=== PATIENT | female | born 1940 | race Caucasian/White ===

== ENCOUNTER 2018-04-07 13:06 | Emergency (ER) | payer MEDICARE, BC ==
[2016-02-18 08:40] VITALS: BMI 34.3
[~2018-04-07 13:06] MED LIST: BAYER CHEWABLE81 MG PO; COZAAR100 MG PO; HYDROCHLOROTHIA25 MG PO; KLOR-CON 1010 MEQ PO; LEXAPRO10 MG PO; LIPITOR20 MG PO; NEXIUM40 MG PO; NORVASC5 MG PO; PLAVIX75 MG PO; POTASSIUM99 M1; PRENATAL COMPLE1 TAB PO; PROTONIX40 MG PO; TOPROL XL200 MG PO; VITAMIN C1000 MG PO; VITAMIN D2000 UNIT PO; XANAX0.25 MG PO; ZANTAC150 MG PO
[2018-04-07 15:26] LABS: BASOPHILS 0.2 % (0-2); HEMATOCRIT 48.4 % (36.0-48.0); HEMOGLOBIN 16.6 g/dL (12-16); IMMATURE GRANULOCYTES 0.3 % (0-5); LYMPHOCYTES 24.8 % (15-50); MCH 31.7 pg (26.0-34.0); MCHC 34.3 g/dL (31.0-37.0); MCV 92.4 fL (80.0-100.0); MEAN PLATELET VOLUME 11.9 fL (7.4-10.4); NEUTROPHILS 63.7 % (40-80); PLATELET COUNT 283 10x3/uL (130-400); RBC 5.24 10x6/uL (4.00-5.40); RDW 13.8 % (11.5-14.5); WBC 12.2 10x3/uL (4.8-10.8)
[2018-04-07 15:34] LABS: ALBUMIN 3.5 g/dL (3.4-5.0); ALKALINE PHOSPHATASE 61 U/L (46-116); ALT (SGPT) 35 U/L (10-68); BILIRUBIN - TOTAL 0.38 mg/dL (0.2-1.3); CALC OSMOLALITY 282 mosm/kg (275-300); CALCIUM 9.6 mg/dL (8.5-10.1); CARBON DIOXIDE 26.6 mmol/L (21.0-32.0); CHLORIDE - SERUM 102 mmol/L (98-107); CREATININE - SERUM 1.2 mg/dL (0.6-1.3); GLUCOSE 121 mg/dL (74-106); POTASSIUM - SERUM 3.3 mmol/L (3.5-5.1); PROTEIN - SERUM 6.6 g/dL (6.4-8.2); SODIUM 140 mmol/L (136-145); UREA NITROGEN 21 mg/dL (7-18); eGFR NON AFRICAN AMERICAN 46 mL/min (90-120)
[2018-04-07 15:46] LABS: THYROID STIMULATING HORMONE 5.51 uIU/mL (0.36-3.74)
[2018-04-07 15:48] LABS: TROPONIN-I < 0.017 ng/mL (0.000-0.060)
== END 2018-04-07 17:08 | disposition home or self-care (01) ==
LOC: D.ER 13:06
PROVIDERS: Physician Assistant
DX: I48.91 Unspecified atrial fibrillation (principal); Z86.79 Personal history of other diseases of the circulatory system; R53.83 Other fatigue; E87.6 Hypokalemia; I44.7 Left bundle-branch block, unspecified

== ENCOUNTER 2018-04-13 12:47 | Inpatient (IN) | payer MEDICARE, BC ==
[~2018-04-13] VITALS: Ht 157.5 cm; Wt 85.3 kg
--- NOTE | ~2018-04-13 | HP ---
PATIENT: MARLEEN DIAZ MEDICAL RECORD: [id number] ACCOUNT: [id number] LOCATION:[address] : 42 ADMISSION DATE: 04/14/18 HISTORY AND PHYSICAL EXAMINATION DATE OF ADMISSION: 04/13/2018 CHIEF COMPLAINT: Irregular heartbeat, substernal chest pain, shortness of breath. HISTORY OF PRESENT ILLNESS: The patient is a 77-year-old female with a known history of having arteriosclerotic heart disease. She has had multiple stents placed in the past. She had presented to the Emergency Room last Tuesday with atrial fibrillation, apparently started on Xarelto, was referred to Dr. Still's office on Tuesday, was given sotalol 80 mg and states that last night she became acutely short of breath, having some substernal chest pain, had one episode of nausea and vomiting. She had pressure in her chest. The patient presented to the Emergency Room, it was felt she warranted admission with uncontrolled atrial fibrillation. PAST MEDICAL HISTORY: Significant for she has had a history of having depression. She has had anxiety, hyperlipidemia, gastroesophageal reflux. She is , history of SVT in the past, DJD of the lumbar spine, history of plantar fasciitis, erosive gastritis. She had 2 stents placed in January [address] Still. She has had a hysterectomy. FAMILY HISTORY: Significant for father had hypertension, also had cerebrovascular accident. Mother had hypertension as well as heart disease. ALLERGIES: ARTHROTEC, CODEINE, CORTISONE, CORTISPORIN, ERYTHROMYCIN BASE, MINIPRESS, NOVOCAIN. MEDICATIONS: Include alprazolam 0.25 p.o. q.8 hours p.r.n. anxiety, aspirin 81 mg once a day, recently placed on Xarelto 20 mg once a day, atorvastatin 20 mg once a day, Wellbutrin 150 mg daily, Lexapro 20 mg daily, hydrochlorothiazide 25 mg daily, Levsin 0.125 sublingual q.6 hours p.r.n. abdominal cramps, losartan 100 mg once a day, metoprolol 200 mg b.i.d., recently placed on sotalol 80 mg b.i.d., pantoprazole 40 mg once a day, Ventolin HFA 90 mcg a day, vitamin D3 2000 international units once a day. HABITS: The patient denies any ethanol, tobacco use or abuse. SOCIAL HISTORY: The patient has worked as a seamstress, graduate of the 12th grade. She is , currently retired. REVIEW OF SYSTEMS: GENERAL: She denies any headaches, seizure or syncope. She denies change in visual or auditory acuity. PULMONARY: She denies any shortness of breath, cough, congestion, history of TB, asthma or bronchitis. CARDIOVASCULAR: No chest pain, palpitations, PND, or orthopnea. GASTROINTESTINAL: No chronic nausea, vomiting, melena or hematochezia. GENITOURINARY: No urgency, frequency, or dysuria. PHYSICAL EXAMINATION: HISTORY AND PHYSICAL [id number] MARLEEN DIAZ VITAL SIGNS: In the Emergency Room, the patient's blood pressure was 139/85, her pulse was 120 and irregular, temperature was 97, respirations were 20, O2 sat was 96% on room air. HEENT: Head is normocephalic. No lesions. Ears: TMs clear. Eyes: Pupils equal, round, reactive to light. Her extraocular movements are intact. Her nasal cavity, oral cavity, oropharynx clear. NECK: Supple. There is no adenopathy. HEART: Irregular, tachycardic. LUNGS: Clear. ABDOMEN: Soft, bowel sounds are positive. EXTREMITIES: Lower extremities have no edema. LABORATORY DATA: The patient had a chest x-ray. The chest x-ray revealed heart size to be normal. No active infiltrates can be appreciated. EKG revealed uncontrolled atrial fibrillation. After receiving Cardizem, she did have atrial fibrillation with rate controlled at 63. White count was elevated at 15, hemoglobin 15.4, hematocrit 43.8, and platelets were 206. Sodium was 133, potassium 3, chloride is 96, BUN is 20, creatinine is 1. She had a glucose of 145. ProBNP was elevated at 7748. ASSESSMENT: 1. New onset atrial fibrillation, uncontrolled at the present time. 2. History of hypertension. 3. History of arteriosclerotic heart disease with stenting in the past. 4. Hyperlipidemia. 5. Depression and anxiety. 6. Hypokalemia. PLAN: The patient will be given 60 mEq of KCl. She will also be given Lasix 40 mg IV q.24 hours. Stop her metoprolol, stop her sotalol. Place her on Cardizem 240 once a day. Continue Xarelto 20 mg once a day. The patient had an echocardiogram on Tuesday. We will obtain the results. The patient will be continued to be monitored. Cardiology consultation will be obtained for possible cardiac catheterization. We will also check the patient's thyroid level. TRANSINT:[id number] Voice Confirmation ID: [id number] DOCUMENT ID: [id number] VINICIUS WEAVER MD at 1447 CC: [id number] DICTATION DATE: 04/13/181844 MINE ENGINEER: 04/13/18 193 ADM IN [place] [id number] [place] [address]
--- NOTE | ~2018-04-13 | EC ---
PATIENT:MARLEEN DIAZ DATE OF SERVICE: 04/14/18 SEX: F MEDICAL RECORD: [id number] DATE OF : 42 LOCATION:D.M2 D.211 AGE OF PATIENT: 77 ADMISSION DATE: 04/14/18 REFERRING PHYSICIAN: INTERPRETING PHYSICIAN: CRISTOBAL SIEGEL MD ECHOCARDIOGRAM REPORT ECHO CHARGES 4 ECHO COMPLETE Date: 04/14 CLINICAL DIAGNOSIS: A-FIB ECHOCARDIOGRAPHIC MEASUREMENTS (adult normal given) AC root (d.<3.7cm) 2.8 cm LV Septum d (<1.2 cm> 1.1 cm Valve Excursion 2.0 cm LV Septum (systole) 1.4 cm Left Atria (s.<4.0cm> 4.5 cm LVPW d(<1.2cm) 1.2 cm RV (d.<2.3cm) 2.4 cm LVPW (sytole) 1.8 cm LV diastole(<5.6CM) 5.8 cm MV E-F(>70mm/sec) cm LV systole 4.0 cm LVOT Diameter 2.0 cm MV exc.(>10mm) cm Est.ejection fraction (50-75%) % DOPPLER: LVIT cm/sec A cm/sec E 150 cm/sec LA cm/sec RVSP 44.0 mmHg LVOT 81.0 cm/sec AOP1/2T m/s Asc. Ao 148 cm/sec RVOT 90.0 cm/sec RA cm/sec PA 101 cm/sec AV Gradient Peak 8.8 mmHg AV Mean 4.2 mmHg AV Area 1.7 cm MV Gradient Peak 9.0 mmHg MV Mean 2.8 mmHg MV Area cm COMMENTS: Outboard System Operator: Farhana STEVENSOE Agitator Operator: Nick Siegel TAPE# PACS Pericardial Effusion Y DATE OF SERVICE: PROCEDURE: Transthoracic echocardiogram. FINDINGS: 1. Left ventricle difficult to visualize, appears to have regional wall motion abnormalities in the anterior septal range in the apical area. Also, the left ventricle appears to be dilated. The patient appears to also be in atrial fibrillation. We are unable to get inflow characteristics. Overall ejection fraction of the left ventricle is 25% to 30%. We do see significant ECHOCARDIOGRAM REPORT [id number] MARLEEN DIAZ asynchronous wall motion. 2. The left atrium is moderate to severely dilated. 3. The aortic valve appears to be normal. 4. The mitral valve has severe mitral regurgitation. 5. The tricuspid valve has moderate tricuspid regurgitation, RVSP of 44 mmHg. 6. The right ventricle is normal size. 7. The right atrium is mildly dilated. 8. The pulmonic valve is grossly normal. CONCLUSIONS: The patient has a dilated what appears to be ischemic cardiomyopathy, also with severe mitral regurgitation and dilated left atrium. TRANSINT:[id number] Voice Confirmation ID: [id number] DOCUMENT ID: [id number] CRISTOBAL SIEGEL MD at 1057 CC: [id number] DICTATION DATE: 04/18/18 0644 LIFE TRAINER: 04/18/18 1328 DIS IN 04/18/18 [facility] [address] [place] [address]
--- NOTE | ~2018-04-13 | DS ---
PATIENT:MARLEEN DIAZ :42 MEDICAL RECORD: [id number] DISCHARGE SUMMARY ADMISSION DATE: 04/14/18 DISCHARGE DATE: 04/18/18 DATE OF ADMISSION: 04/14/2018. DATE OF DISCHARGE: 04/18/2018. CONDITION ON DISCHARGE: Improved. ADMITTING DIAGNOSES: 1. New onset atrial fibrillation, uncontrolled. 2. Hypertension. 3. Arteriosclerotic heart disease. 4. Hyperlipidemia. 5. Depression. 6. Hypokalemia. DISCHARGE DIAGNOSES: 1. Atrial fibrillation. 2. Arteriosclerotic heart disease. 3. Hyperlipidemia. 4. Gastroesophageal reflux. 5. Hypokalemia. 6. Depression. 7. Anxiety. HOSPITAL COURSE: This 77-year-old white female who had a history of having known arteriosclerotic heart disease. She had had multiple stents. She presented to the Emergency Room with uncontrolled AFib. She had been started on Xarelto, sotalol 80 mg. She became acutely short of breath, presented to the Emergency Room with substernal chest pain and felt the patient warranted admission. PHYSICAL EXAMINATION: VITAL SIGNS: In the Emergency Room, the patient's blood pressure 139/85, her pulse 120, respirations 20, temperature was 97, O2 sat was 96% on room air. HEENT: Normal. HEART: She had tachycardia, was irregular. X-ray was unremarkable. EKG revealed uncontrolled atrial fibrillation. She had received Cardizem, rate was down to 63, although it was controlled. White count was 15, hemoglobin 15, hematocrit was 43.8, and her platelets 206. The patient was admitted. Her potassium was low, this was corrected. We stopped her metoprolol, stopped her sotalol, placed her on Cardizem, continued her Xarelto. Cardiology consultation was obtained. She had an echocardiogram. The echocardiogram revealed left ventricle and atrium to be moderate to severely dilated. The aortic valve appeared to be normal. Mitral valve had severe mitral regurgitation. Tricuspid valve, moderate tricuspid regurgitation. Right ventricle was normal, right atrium was mildly dilated. Pulmonic valve was grossly normal. It was felt that the patient dilated what appeared to be ischemic cardiomyopathy, also severe mitral regurg. It was felt the patient was doing well on her day of discharge, she had an appointment with Dr. Still on the . The patient was controlled. She was in a controlled atrial fibrillation. She was therefore discharged. DISCHARGE SUMMARY REPORT [id number] MARLEEN DIAZ DISCHARGE INSTRUCTIONS: Sotalol 160 mg p.o. b.i.d., diltiazem 240 mg once a day, aspirin 81 mg once a day, losartan 100 mg once a day, Protonix 40 mg a day, Lipitor 20 mg daily, Xanax 0.25 p.o. b.i.d. p.r.n. anxiety, vitamin C 1000 mg daily, vitamins once a day, vitamin D3 2000 international units once a day, Xarelto 20 mg daily. The patient was to be on a regular diet. She would follow up with me in 1 week. She was also follow up with beauty operator apprentice in 1 week or before if her condition should worsen. TRANSINT:[id number] Voice Confirmation ID: [id number] DOCUMENT ID: [id number] VINICIUS WEAVER MD at 1250 CC: [id number] DICTATION DATE: 04/30/18 1548 RAG CUTTING MACHINE TENDER: 05/01/18 1125 DIS IN 04/18/18 [place] [id number] [place] [address]
[2018-04-13 13:42] LABS: BASOPHILS 0.1 % (0-2); EOSINOPHILS 0.1 % (0-7); HEMATOCRIT 43.8 % (36.0-48.0); HEMOGLOBIN 15.4 g/dL (12-16); IMMATURE GRANULOCYTES 0.5 % (0-5); LYMPHOCYTES 15.8 % (15-50); MCH 31.8 pg (26.0-34.0); MCHC 35.2 g/dL (31.0-37.0); MCV 90.5 fL (80.0-100.0); MEAN PLATELET VOLUME 10.7 fL (7.4-10.4); MONOCYTES 8.9 % (2-11); NEUTROPHILS 74.6 % (40-80); PLATELET COUNT 265 10x3/uL (130-400); RBC 4.84 10x6/uL (4.00-5.40); RDW 13.7 % (11.5-14.5)
[2018-04-13 14:03] LABS: ALBUMIN 3.4 g/dL (3.4-5.0); ALKALINE PHOSPHATASE 81 U/L (46-116); ALT (SGPT) 78 U/L (10-68); BILIRUBIN - TOTAL 0.72 mg/dL (0.2-1.3); CALC OSMOLALITY 271 mosm/kg (275-300); CALCIUM 9.3 mg/dL (8.5-10.1); CARBON DIOXIDE 25.9 mmol/L (21.0-32.0); CHLORIDE - SERUM 96 mmol/L (98-107); GLUCOSE 145 mg/dL (74-106); PROTEIN - SERUM 7.1 g/dL (6.4-8.2); SODIUM 133 mmol/L (136-145); UREA NITROGEN 20 mg/dL (7-18); eGFR NON AFRICAN AMERICAN 57 mL/min (90-120)
[2018-04-13 14:10] LABS: CREATINE KINASE 79 UL (21-215); PRO BNP 7748 pg/mL (0-450)
[2018-04-13 14:16] LABS: TROPONIN-I < 0.017 ng/mL (0.000-0.060)
[2018-04-13 17:40] VITALS: BP 123/89; Ht 157.5 cm; Wt 85.3 kg
[2018-04-13] MEDS ORDERED: BETAPACE 80 MG80 MG PO ×2 (18:03→19:51)
[2018-04-13] MEDS ORDERED: XARELTO10 MG PO (18:04)
[2018-04-13] MEDS ORDERED: XARELTO20 MG PO (19:52)
[2018-04-13 19:54] VITALS: BP 94/47
[2018-04-13 22:07] VITALS: BP 110/54
[2018-04-14 01:30] VITALS: BP 123/67
[2018-04-14 04:20] LABS: BASOPHILS 0.2 % (0-2); EOSINOPHILS 0.6 % (0-7); HEMATOCRIT 39.2 % (36.0-48.0); HEMOGLOBIN 13.4 g/dL (12-16); IMMATURE GRANULOCYTES 0.2 % (0-5); MCH 31.4 pg (26.0-34.0); MCHC 34.2 g/dL (31.0-37.0); MCV 91.8 fL (80.0-100.0); MEAN PLATELET VOLUME 10.7 fL (7.4-10.4); MONOCYTES 12.3 % (2-11); NEUTROPHILS 65.7 % (40-80); PLATELET COUNT 236 10x3/uL (130-400); RBC 4.27 10x6/uL (4.00-5.40); RDW 13.9 % (11.5-14.5)
[2018-04-14 04:40] VITALS: BP 115/52
[2018-04-14 04:45] LABS: ANION GAP 10.1 mmol/L (8-16); CALCIUM 8.1 mg/dL (8.5-10.1); CARBON DIOXIDE 27.6 mmol/L (21.0-32.0); CREATININE - SERUM 1.2 mg/dL (0.6-1.3); MAGNESIUM - SERUM 1.8 mg/dL (1.8-2.4); POTASSIUM - SERUM 3.7 mmol/L (3.5-5.1)
[2018-04-14 07:54] VITALS: BP 125/88
[2018-04-14 11:53] VITALS: BP 119/62
[2018-04-14 16:35] VITALS: BP 101/45
[2018-04-14 20:20] VITALS: BP 114/48
[2018-04-15 00:41] VITALS: BP 120/77
[2018-04-15 05:32] LABS: BASOPHILS 0.1 % (0-2); EOSINOPHILS 1.2 % (0-7); HEMATOCRIT 38.4 % (36.0-48.0); IMMATURE GRANULOCYTES 0.4 % (0-5); LYMPHOCYTES 16.4 % (15-50); MCH 31.2 pg (26.0-34.0); MCHC 33.9 g/dL (31.0-37.0); MCV 92.1 fL (80.0-100.0); MEAN PLATELET VOLUME 10.6 fL (7.4-10.4); MONOCYTES 10.2 % (2-11); NEUTROPHILS 71.7 % (40-80); PLATELET COUNT 207 10x3/uL (130-400); RBC 4.17 10x6/uL (4.00-5.40); WBC 10.4 10x3/uL (4.8-10.8)
[2018-04-15 05:57] VITALS: BP 115/56
[2018-04-15 06:09] LABS: ALBUMIN 2.8 g/dL (3.4-5.0); ANION GAP 9.6 mmol/L (8-16); BILIRUBIN - TOTAL 0.57 mg/dL (0.2-1.3); CALCIUM 8.5 mg/dL (8.5-10.1); CARBON DIOXIDE 31.1 mmol/L (21.0-32.0); CREATININE - SERUM 0.9 mg/dL (0.6-1.3); POTASSIUM - SERUM 3.7 mmol/L (3.5-5.1); PROTEIN - SERUM 6.1 g/dL (6.4-8.2)
[2018-04-15 08:11] VITALS: BP 139/69
[2018-04-15 11:22] VITALS: BP 131/58
[2018-04-15 15:29] VITALS: BP 133/58
[2018-04-16 00:46] VITALS: BP 146/71
[2018-04-16 04:54] LABS: BASOPHILS 0.2 % (0-2); EOSINOPHILS 1.4 % (0-7); HEMATOCRIT 37.4 % (36.0-48.0); HEMOGLOBIN 12.4 g/dL (12-16); IMMATURE GRANULOCYTES 0.3 % (0-5); LYMPHOCYTES 17.3 % (15-50); MCH 30.8 pg (26.0-34.0); MCHC 33.2 g/dL (31.0-37.0); MCV 92.8 fL (80.0-100.0); MEAN PLATELET VOLUME 10.3 fL (7.4-10.4); MONOCYTES 11.1 % (2-11); NEUTROPHILS 69.7 % (40-80); PLATELET COUNT 224 10x3/uL (130-400); RBC 4.03 10x6/uL (4.00-5.40); RDW 13.8 % (11.5-14.5); WBC 9.4 10x3/uL (4.8-10.8)
[2018-04-16 05:29] LABS: ANION GAP 10.6 mmol/L (8-16); CALCIUM 8.7 mg/dL (8.5-10.1); CARBON DIOXIDE 30.8 mmol/L (21.0-32.0); CREATININE - SERUM 0.8 mg/dL (0.6-1.3); MAGNESIUM - SERUM 1.8 mg/dL (1.8-2.4)
[2018-04-16 05:30] LABS: POTASSIUM - SERUM 4.4 mmol/L (3.5-5.1)
[2018-04-16 05:39] VITALS: BP 155/69
[2018-04-16 12:13] VITALS: BP 112/62
[2018-04-16 16:06] LABS: CKMB 1.4 U/L (0.0-3.6)
[2018-04-16 16:13] LABS: TROPONIN-I < 0.017 ng/mL (0.000-0.060)
[2018-04-16 16:32] VITALS: BP 125/72
[2018-04-16 21:34] VITALS: BP 115/59
[2018-04-17 04:04] LABS: CALC OSMOLALITY 281 mosm/kg (275-300); CALCIUM 8.7 mg/dL (8.5-10.1); CHLORIDE - SERUM 102 mmol/L (98-107); CREATININE - SERUM 0.7 mg/dL (0.6-1.3); GLUCOSE 158 mg/dL (74-106); POTASSIUM - SERUM 4.2 mmol/L (3.5-5.1); SODIUM 139 mmol/L (136-145); eGFR NON AFRICAN AMERICAN 86 mL/min (90-120)
[2018-04-17 04:05] LABS: UREA NITROGEN 14 mg/dL (7-18)
[2018-04-17 07:09] VITALS: BP 143/78
[2018-04-17 07:57] VITALS: BP 156/85
[2018-04-17 11:13] VITALS: BP 155/80; BP 156/85
[2018-04-17 15:16] VITALS: BP 125/83
[2018-04-17 20:18] VITALS: BP 144/66
[2018-04-18 00:39] VITALS: BP 125/66
[2018-04-18 06:11] VITALS: BP 149/73
[2018-04-18] MEDS ORDERED: CARDIZEM CD240 MG PO (07:27)
[2018-04-18] MEDS ORDERED: BETAPACE 80 MG80 MG PO (07:27)
[2018-04-18 08:17] VITALS: BP 169/75
[2018-04-18 11:43] VITALS: BP 153/58
== END 2018-04-18 11:42 | disposition home or self-care (01) | DRG 310 ==
LOC: D.ER 12:47 → D.M2 16:02 → D.EDHOLD 16:02 → OBSVTIME 16:10 → D.M2 16:11
PROVIDERS: Emergency Medicine; Family Medicine
DX: I48.91 Unspecified atrial fibrillation (principal); Z79.01 Long term (current) use of anticoagulants; I25.10 Atherosclerotic heart disease of native coronary artery without angina pectoris; E78.5 Hyperlipidemia, unspecified; K21.9 Gastro-esophageal reflux disease without esophagitis; I10 Essential (primary) hypertension; E87.6 Hypokalemia; F41.9 Anxiety disorder, unspecified; F32.9 Major depressive disorder, single episode, unspecified; Z95.5 Presence of coronary angioplasty implant and graft

== ENCOUNTER 2018-04-28 09:00 | Outpatient (CLI) | payer MEDICARE, BC ==
[~2018-04-28] VITALS: Ht 157.5 cm; Wt 79.5 kg
--- NOTE | ~2018-04-28 | HEMODYNAMI ---
PATIENT:MARLEEN DIAZ MEDICAL RECORD: [id number] : 42 LOCATION:DEVE ADMISSION DATE: 04/28/18 Generatedon:04/28/201814:26 Patient name: MARLEEN DIAZ Patient #: [id number] SSN: : 1940 Date of study: 04/28/2018 Page: Of Hemodynamic Procedure Report Patient Data Patient Demographics Procedure consent was obtained First Name: MARLEEN Gender: Female Last Name: EMILY : 1940 [facility] Initial: K Age: 77 year(s) Patient #: [id number] Race: Additional ID: [id number] Contact details [address]: [address] [place] [address] State: [place] City: [place] Zip code: [address] Past Medical History History of disease Date Diagnosis Comments CAD Allergies Allergen Reaction Date Comments Reported Other allergy 02/18/2016 Troy Inhibitors, Codeine, Cortisone Other allergy 04/28/2018 TROY Inhibitors, Codeine, Cortisone. Admission Admission Data Admission Date: 04/28/2018 Admission Time: 9:00 Lab Results Lab Result Date: 04/28/2018 Lab Result Time: 10:15 Biochemistry Name Units Result Min Max BUN mg/dl 22 --(----)-* 7 18 Creatinine mg/dl 1 --(--*-)-- 0.6 1.3 CBC Name Units Result Min Max Hematocrit % 45.6 --(-*--)-- 42 54 Hemoglobin g/dl 15.8 --(--*-)-- 13.5 17.5 Procedure Procedure Types Cath Procedure Diagnostic Procedure LHC LHC w/Coronaries FFR/IVUS Intra-Coronary IVUS Initial Procedure Description Procedure Date Procedure Date: 04/28/2018 Procedure Start Time: 14:07 Procedure End Time: 14:20 Procedure Staff Name Function Robinson Still MD Performing Physician Margarito Holden RT Monitor Rosana Goldman RT Scrub Yasmany Gannon RN Nurse Procedure Data Cath Procedure Fluoroscopy Diagnostic fluoroscopy Total fluoroscopy Time: 4.6 time: 4.6 min min Diagnostic fluoroscopy Total fluoroscopy dose: 644 dose: 644 mGy mGy Contrast Material Contrast Material Type Amount (ml) Isovue 300 78 Entry Location Entry Primary Successful Side Size Upsize Upsize Entry Closure Huang ccessful Closure Location (Fr) 1 (Fr) 2 (Fr) Remarks Device Remarks Radial Right 6 Fr Mechanical artery Short Compression Estimated blood loss: 10 ml Diagnostic catheters Device Type Used For End Catheter Placement DIAGNOSTIC Joel 110cm Procedure 5Fr catheter ([id number]) Procedure Complications No complications Procedure Medications Medication Administration Route Dosage Oxygen etCO2 Nasal cannula 2 l/min Heparin Flush Bag added to field 2 bags (1000units/500ml NS) 0.9% NaCl I.V. 100 ml/hr Radial Cocktail added to field 1 syringe (Verapomil 2mg/Nitro 400mcg/Heparin 1500units) Fentanyl I.V. 50 mcg Versed I.V. 1 mg Fentanyl I.V. 50 mcg Versed I.V. 1 mg Fentanyl I.V. 50 mcg Radial Cocktail I.A. 1 syringe (Verapomil 2mg/Nitro 400mcg/Heparin 1500units) Fentanyl I.V. 50 mcg Hemodynamics Rest HGB: 15.8 (g/dl) Heart Rate: 56 (bpm) Snapshots Pre Cath Intra NCS Post Cath Vital Signs Time Heart Resp SPO2 etCO2 NIBP (mmHg) Rhythm Pain Sedation Rate (ipm) (%) (mmHg) Status Level (bpm) 13:55:33 56 17 95 0 148/73(117) NSR 0 (11) 10(A) , No pain 14:00:14 49 17 93 12.7 157/65(117) NSR 0 (11) 10(A) , No pain 14:04:57 52 16 93 22.4 147/67(112) NSR 0 (11) 10(A) , No pain 14:09:37 53 17 96 14.9 145/66(107) NSR 0 (11) 9(A) , No pain 14:14:18 60 17 96 31.3 132/61(90) NSR 0 (11) 9(A) , No pain 14:18:54 54 17 98 8.9 131/63(115) NSR 0 (11) 9(A) , No pain 14:22:44 54 20 97 33.6 139/64(106) NSR 0 (11) 9(A) , No pain Medications Time Medication Route Dose Verified Delivered Reason Notes Effectiveness by by 13:46:51 Oxygen etCO2 2 l/min Robinson Jade Per Nasal Tessy Gannon RN physician cannula 13:47:02 Heparin Flush added 2 bags Robinson Jade used for Bag to Tessy Gannon RN procedure (1000units/500ml field NS) 13:47:18 0.9% NaCl I.V. 100 Robinsonnisa Gerbery Per ml/hr Tessy Gannon RN physician 13:47:28 Radial Cocktail added 1 Robinson Jade used for (Verapomil to syringe Tessy Gannon RN procedure 2mg/Nitro field 400mcg/Heparin 1500units) 14:06:28 Fentanyl I.V. 50 mcg Robinson Jade for sedation Tessy Gannon RN 14:06:37 Versed I.V. 1 mg Robinson Jade for sedation Tessy Gannon RN 14:08:02 Fentanyl I.V. 50 mcg Robinson Jade for sedation Tessy Gannon RN 14:09:07 Versed I.V. 1 mg Robinson Jade for sedation Tessy Gannon RN 14:09:08 Radial Cocktail I.A. 1 Robinson Bowers for (Verapomil syringe Tessy Still MD vasodilation 2mg/Nitro 400mcg/Heparin 1500units) 14:11:22 Fentanyl I.V. 50 mcg Robinson Jade for sedation Tessy Gannon RN 14:14:12 Fentanyl I.V. 50 mcg Robinson Bowers for sedation Tessy Still MD Procedure Log Time Note 13:33:25 Informed consent obtained and on chart 13:33:41 Diagnostic Cath status Elective 13:33:42 Rosana Goldman RT(R) sent for patient. Start room use. 13:33:43 Time tracking: Regular hours (M-F 7:00 - 5:00) 13:33:46 Plan of Care:Hemodynamics will remain stable., Cardiac rhythm will remain stable., Comfort level will be maintained., Respiratory function will remain adequate., Patient/ family verbilizes understanding of procedure., Procedure tolerated without complication., Recovers from procedure without complications.. 13:33:57 H&P Date Dictated: 04/25/2018 Within 30 days and on chart., H&P Addendum completed by physician on day of procedure. (MUST COMPLETE FOR ALL OUTPATIENTS). 13:33:59 Pre-procedure instructions explained to patient. 13:33:59 Pre-op teaching completed and patient verbalized understanding. 13:34:00 Family in waiting room. 13:34:01 Patient NPO since Midnight. 13:34:26 Patient allergic to Other allergyACE Inhibitors, Codeine, Cortisone. 13:46:51 Oxygen 2 l/min etCO2 Nasal cannula was administered by Yasmany Gannon RN; Per physician; 13:47:02 Heparin Flush Bag (1000units/500ml NS) 2 bags added to field was administered by Yasmany Gannon RN; used for procedure; 13:47:18 0.9% NaCl 100 ml/hr I.V. was administered by Yasmany Gannon RN; Per physician; 13:47:28 Radial Cocktail (Verapomil 2mg/Nitro 400mcg/Heparin 1500units) 1 syringe added to field was administered by Yasmany Gannon RN; used for procedure; 13:52:39 Is the patient allergic to Iodine/contrast media? No. 13:52:48 Is patient on blood thinner?No 13:52:50 Patient diabetic? No. 13:52:53 Previous problem with sedation/anesthesia? No ? 13:52:54 Snore? No 13:52:55 Sleep apnea? No 13:52:56 Deviated septum? No 13:52:57 Opens mouth fully? Yes 13:52:59 Sticks out tongue? Yes 13:53:02 Airway obstruction? No ? 13:53:05 Dentures? No ? 13:53:09 Modified Arnoldo's test Ulnar < 7 seconds 13:53:10 Patient pain scale 0/10 ?. 13:53:18 IV patent on arrival in left antecubital with 0.9% NaCl at [facility]. 13:53:20 Lab results completed and on chart. 13:53:54 Lab Result : BUN 22 mg/dl 13:53:54 Lab Result : Creatinine 1 mg/dl 13:53:54 Lab Result : Hematocrit 45.6 % 13:53:54 Lab Result : Hemoglobin 15.8 g/dl 13:53:58 Right Radial & Right Groin area was prepped with chlora-prep and draped in sterile fashion 13:53:59 Alarms reviewed by R. N. 13:54:00 Sharps counted by scrub and verified by R.N. 13:54:10 Use device set Radial Dx or PCI 13:54:13 ACIST Syringe (19535) opened to sterile field. 13:54:13 Medline Cath Pack ([id number]) opened to sterile field. 13:54:14 Bag Decanter (2002S) opened to sterile field. 13:54:15 ACIST Hand Control (04070) opened to sterile field. 13:54:16 ACIST Manifold (34645) opened to sterile field. 13:54:16 Tegaderm 4 x 4 (1626W) opened to sterile field. 13:54:18 MBrace Wrist Support ([id number]) opened to sterile field. 13:54:22 SHEATH 6Fr Prelude Radial ([id number]) opened to sterile field. 13:54:23 DIAGNOSTIC WIRE .035 260cm J wire (353540) opened to sterile field. 13:54:38 Vital chart was started 13:54:39 Baseline sample Acquired. 13:54:46 Rhythm: sinus rhythm 13:54:47 Full Disclosure recording started 13:56:32 Zero performed for pressure channel P1 13:57:21 Zero performed for pressure channel P1 14:04:59 Physician arrived 14:04:59 --------ALL STOP TIME OUT------ 14:05:00 Final Timeout: patient, procedure, and site verified with staff and physician. All members of the team are in agreement. 14:05:12 Right Radial & Right Groin site verified by team. 14:05:14 Physical assessment completed. ASA score P 2 - A patient with mild systemic disease as per Robinson Still MD. 14:05:17 Sedation plan: IV Moderate Sedation Medication:Versed, Fentanyl 14:06:28 Fentanyl 50 mcg I.V. was administered by Yasmany Gannon RN; for sedation; 14:06:37 Versed 1 mg I.V. was administered by Yasmnay Gannon RN; for sedation; 14:07:55 Procedure started. 14:07:59 Local anesthetic to right radial artery with Lidocaine 2% by Robinson Still MD.INITIAL ACCESS ONLY 14:08:02 Fentanyl 50 mcg I.V. was administered by Yasmany Gannon RN; for sedation; 14:08:07 A 6 Fr Short sheath was inserted into the Right Radial artery 14:08:19 GLIDE WIRE Super Stiff Angled 260cm (AE0696) opened to sterile field. 14:08:25 TORQUE DEVICE PLASTIC .038 ( TD01) opened to sterile field. 14:08:37 A DIAGNOSTIC Joel 110cm 5Fr catheter (152997) was advanced over the wire and used for Procedure. 14::07 Versed 1 mg I.V. was administered by Yasmany Gannon RN; for sedation; 14::08 Radial Cocktail (Verapomil 2mg/Nitro 400mcg/Heparin 1500units) 1 syringe I.A. was administered by Robinson Still MD; for vasodilation; 14::07 LV gram done using URENA 14::09 Injector settings: Ml/sec: 5, Volume: 15, 14:10:32 EF : 40 % 14:10:43 RCA angiography performed. 14:11:22 Fentanyl 50 mcg I.V. was administered by Yasmany Gannon RN; for sedation; 14:11:36 Catheter exchanged over wire. 14:11:43 GUIDE 6FR XBLAD 3.5 catheter ([id number]) opened to sterile field. 14:11:52 6 Fr XBLAD 3.5 guide catheter was inserted over the wire 14:12:23 LCA angiography performed. 14:13:37 Catheter removed. 14:13:51 CHOICE PT Extra Support 182cm wire ([id number]) opened to sterile field. 14:13:52 INFLATOR Merit BasixCompak (DH3209) opened to sterile field. 14:14:11 [place] IVUS Catheter (35587R) opened to sterile field. 14:14:12 Fentanyl 50 mcg I.V. was administered by Robinson Still MD; for sedation; 14:14:22 GUIDE 6FR AR 1.0 catheter (LF7IX80) opened to sterile field. 14:14:31 6 Fr AR1 guide catheter was inserted over the wire 14:16:26 CHOICE PT ES wire advanced. 14:16:48 Wire advanced across lesion. 14:17:30 IVUS catheter advanced over wire. 14:17:32 IVUS pass to RCA lesion performed. 14:17:56 IVUS catheter removed over wire. 14:18:00 Wire removed. 14:18:01 Guide catheter removed. 14:18:06 TR BAND Standard ([id number]) opened to sterile field. 14:18:14 Sheath removed intact; hemostasis achieved with Mechanical Compression to the Right Radial artery. 14:18:16 Procedure ended.(Physican Out) 14:18:32 Fluoroscopy time 04.60 minutes. 14:18:36 Fluoroscopy dose: 644 mGy 14:18:36 Flurop Dose total: 644 14:18:39 Contrast amount:Isovue 300 78ml. 14:18:41 Sharps counted by scrub and verified by R.N. 14:18:43 TR band inflated with 12cc of air. 14:18:44 Insertion/operative site no bleeding no hematoma. 14:18:47 Post Procedure Pulses reassessed and unchanged 14:18:49 Post-procedure physical assessment completed. ASA score P 2 - A patient with mild systemic disease as per Robinson Still MD. 14:18:53 Post procedure rhythm: unchanged. 14:18:56 Estimated blood loss: 10 ml 14:18:58 Post procedure instruction explained to patient.Patient verbalizes understanding. 14:18:59 Patient needs reinforcement of post procedure teaching. 14:19:15 Procedure type changed to Cath procedure, Diagnostic procedure, LHC, LHC w/Coronaries, FFR/IVUS, Intra-Coronary IVUS Initial 14:19:59 Procedure and supply charges have been captured, reviewed, submitted and are correct. 14:20:02 Procedure Complication : No complications 14:20:04 Vital chart was stopped 14:20:05 See physician's report for complete and final results. 14:20:08 Report given to Pre/Post Procedure Room. 14:20:11 Patient transfered to Pre/Post Procedure Room with Stretcher. 14:20:12 Procedure ended. 14:20:12 Full Disclosure recording stopped 14:20:16 End room use (Document Last) Device Usage Item Name Manufacture Quantity Catalog Number Hospital Part Current M inimal Lot# / Charge Number Stock Stock Serial# Code ACIST Syringe Acist 1 84509 132704 219557 959351 2 0 (71814) Simpirica Spine Medline Cath Cardinal 1 [id number] 033584 43714 511148 5 Pack Health ([id number]) Bag Decanter Microtek 1 2001S 118484 90420 021697 5 (2001S) Medical Inc. ACIST Hand Acist 1 89246 807781 457110 376774 5 Control (69995) Medical Systems Inc ACIST Manifold Acist 1 59559 014189 124941 886723 5 (24426) Medical Systems Inc Tegaderm 4 x 4 3M 1 1626W 495602 973807 130592 5 (1626W) MBrace Wrist Advanced 1 140-0250-00 524488 24498 901162 5 Support Vascular ([id number]) Dynamics SHEATH 6Fr Merit 1 [id number] 835542 223868 371429 5 Prelude Radial Medical ([id number]) DIAGNOSTIC WIRE [place] 1 072307 666627 248655 296308 3 0 .035 260cm J wire (217881) GLIDE WIRE Terumo 1 YV1124 688470 338113 043944 5 Super Stiff Angled 260cm (CC6584) TORQUE DEVICE [place] 1 TD01 736245 340145 401964 5 PLASTIC .038 ( Scientific TD01) DIAGNOSTIC Terumo 1 40-4346 723160 757031 944524 5 Joel 110cm 5Fr catheter (185652) GUIDE 6FR XBLAD Cardinal 1 [id number] 675766 480431 998122 1 0 3.5 catheter Health (71387329) CHOICE PT Extra [place] 1 [id number] 498236 234164 471780 5 Support 182cm Scientific wire ([id number]) INFLATOR Merit Merit 1 YM2310 866241 596049 930845 1 5 Q Care International (WM0346) [place] 1 80325V 825655 636114 874010 8 [place] IVUS Catheter (58166Y) GUIDE 6FR AR Medtronic 1 [id number] 412047 22316 221549 1 1.0 catheter (YH3HS05) TR BAND Terumo 1 [id number] 185223 086771 440532 4 0 Standard ([id number]) Signature Audit [place] Stage Time Signature Unsigned Intra-Procedure 04/28/2018 Margarito Holden 2:26:27 PM RT(R) Signatures Monitor : Margarito Holden RT Signature : Date : Time : [address] [place] [address]
--- NOTE | ~2018-04-28 | OP ---
PATIENT NAME: MARLEEN DIAZ MEDICAL RECORD: [id number] :42 LOCATION:D.CAT ADMISSION DATE: SURGEON: OBDULIA GARRETT MD DATE OF OPERATION: 04/28/2018 PROCEDURES: 1. Left heart catheterization. 2. Selective coronary angiography. 3. Left ventriculogram. 4. Intravascular ultrasound. INDICATION: Angina and coronary artery disease. PROCEDURE IN DETAIL: After informed consent was obtained and after a detailed description of risks, benefits as well as alternative therapies, the patient elected to proceed with angiogram and heart catheterization. The right radial area was prepped and draped in normal sterile fashion. Right radial artery was cannulated via modified Seldinger technique with placement of 6-Moldovan sheath. All catheters exchanged through this sheath. FINDINGS: The left ventriculogram was performed in standard 30-degree URENA view, reveals good cardiac wall motion throughout all segments. Overall ejection fraction estimated at 50%. SELECTIVE CORONARY ANGIOGRAPHY: 1. Left main showed no significant angiographic disease. 2. Left anterior descending has moderate irregularities, but no flow-limiting stenosis. Previously placed stents are widely patent with no significant restenosis. 3. Left circumflex has moderate irregularities, but no flow-limiting stenosis. 4. The right coronary artery has a questionable area proximally; however, this reveals no significant stenosis by intravascular ultrasound elsewise. The RCA has no significant stenosis. OVERALL IMPRESSION: Wide patency of the previously placed stents. No restenosis. No significant stenosis elsewise. Continue medical management of the coronary artery disease and cardiac risk factors. TRANSINT:[id number] Voice Confirmation ID: [id number] DOCUMENT ID: [id number] OBDULIA GARRETT MD at 1403 CC: [id number] DICTATION DATE: 04/28/18 1424 ELECTRICAL MAINTENANCE MECHANIC: 04/28/18 1431 DEP CLI 04/28/18 [place] [id number]
[~2018-04-28 09:00] MED LIST changes: +BETAPACE 80 MG80 MG PO; +CARDIZEM CD240 MG PO; +XARELTO10 MG PO; +XARELTO20 MG PO
[2018-04-28 10:14] VITALS: BP 140/66; Ht 157.5 cm; Wt 79.5 kg
[2018-04-28 10:46] LABS: BASOPHILS 0.3 % (0-2); EOSINOPHILS 0.9 % (0-7); HEMATOCRIT 45.6 % (36.0-48.0); HEMOGLOBIN 15.8 g/dL (12-16); IMMATURE GRANULOCYTES 0.4 % (0-5); LYMPHOCYTES 22.3 % (15-50); MCH 32.3 pg (26.0-34.0); MCHC 34.6 g/dL (31.0-37.0); MCV 93.3 fL (80.0-100.0); MEAN PLATELET VOLUME 9.9 fL (7.4-10.4); MONOCYTES 9.4 % (2-11); NEUTROPHILS 66.7 % (40-80); PLATELET COUNT 262 10x3/uL (130-400); RBC 4.89 10x6/uL (4.00-5.40); RDW 14.1 % (11.5-14.5); WBC 11.3 10x3/uL (4.8-10.8)
[2018-04-28 11:23] LABS: ANION GAP 13.4 mmol/L (8-16); CALCIUM 9.6 mg/dL (8.5-10.1); CARBON DIOXIDE 27.5 mmol/L (21.0-32.0); POTASSIUM - SERUM 3.9 mmol/L (3.5-5.1)
== END 2018-04-28 17:15 | disposition home or self-care (01) ==
LOC: D.CATH 09:00
PROVIDERS: Internal Medicine Interventional Cardiology
DX: I25.119 Atherosclerotic heart disease of native coronary artery with unspecified angina pectoris (principal); I10 Essential (primary) hypertension; I48.91 Unspecified atrial fibrillation; Z01.812 Encounter for preprocedural laboratory examination

== ENCOUNTER → 2018-07-10 10:28 | Outpatient (CLI) | payer MEDICARE, BC ==
[2018-04-28 10:14] VITALS: BMI 32.1
== END | disposition home or self-care (01) ==
LOC: D.US 10:28
DX: M79.662 Pain in left lower leg (principal)

== ENCOUNTER 2019-06-29 22:43 | Inpatient (IN) | payer MEDICARE, BC ==
[~2019-06-29] VITALS: Ht 157.5 cm; Wt 88.7 kg
--- NOTE | ~2019-06-29 | HEMODYNAMI ---
PATIENT:MARLEEN DIAZ MEDICAL RECORD: [id number] : 42 [id number] ADMISSION DATE: 06/30/19 Generatedon:07/02/201917:03 Patient name: MARLEEN DIAZ Patient #: [id number] : 1940 Date of study: 07/02/2019 Page: Of Hemodynamic Procedure Report Patient Data Patient Demographics Procedure consent was obtained First Name: MARLEEN Gender: Female Last Name: EMILY : 1940 [facility] Initial: K Age: 78 year(s) Patient #: [id number] Race: SSN: [id number] Additional ID: [id number] Contact details Address: [address] [place] [address] State: [place] City: [place] Zip code: [address] Past Medical History History of disease Date Diagnosis Comments CAD Allergies Allergen Reaction Date Comments Reported Other allergy 02/18/2016 Troy Inhibitors, Codeine, Cortisone Other allergy 04/28/2018 TROY Inhibitors, Codeine, Cortisone. Admission Admission Data Admission Date: 06/30/2019 Admission Time: 0:36 Admit Source: Emergency department Room #: D.2124 Procedure Procedure Types Cath Procedure Diagnostic Procedure [facility] w/Coronaries Procedure Description Procedure Date Procedure Date: 07/02/2019 Procedure Start Time: 16:45 Procedure End Time: 17:02 Procedure Staff Name Function Robinson Still MD Performing Physician Gab Rose RT Monitor Margarito Holden RT Scrub Rodríguez Buckley RN Nurse Indication Non-Q wave PA CAD Paroxysmal atrial fibrillation Cardiomyopathy Procedure Data Cath Procedure Fluoroscopy Diagnostic fluoroscopy Total fluoroscopy Time: 2.5 time: 2.5 min min Diagnostic fluoroscopy Total fluoroscopy dose: 447 dose: 447 mGy mGy Contrast Material Contrast Material Type Amount (ml) Isovue 300 75 Entry Location Entry Primary Successful Side Size Upsize Upsize Entry Closure Huang ccessful Closure Location (Fr) 1 (Fr) 2 (Fr) Remarks Device Remarks Radial 6 Fr Mechanical artery Short Compression Femoral Right 6 Fr Exoseal artery Short Estimated blood loss: 10 ml Diagnostic catheters Device Type Used For End Catheter Placement DIAGNOSTIC [place] 110cm 5 Procedure Fr catheter ([id number]) MULTIPACK 3DRC 5Fr Procedure catheter MULTIPACK JL 4.0 5Fr Procedure catheter MULTIPACK Pigtail 5 Fr Procedure catheter Procedure Medications Medication Administration Route Dosage 0.9% NaCl I.V. 100 ml/hr Oxygen etCO2 Nasal cannula 3 l/min Heparin Flush Bag added to field 2 bags (1000units/500ml NS) Lidocaine 2% added to field 20 Radial Cocktail added to field 1 syringe (Verapamil 2mg/Nitro 400mcg/Heparin 1500units) Versed I.V. 0.5 mg Fentanyl I.V. 50 mcg Radial Cocktail I.A. 1 syringe (Verapamil 2mg/Nitro 400mcg/Heparin 1500units) Versed I.V. 0.5 mg Hemodynamics Rest Pre Cath Intra NCS Post Cath Vital Signs Time Heart Resp SPO2 etCO2 NIBP (mmHg) Rhythm Pain Sedation Rate (ipm) (%) (mmHg) Status Level (bpm) 16:34:59 72 23 93 29.9 185/87(122) NSR 0 (11) 10(A) , No pain 16:39:25 72 21 92 20.9 180/89(122) NSR 0 (11) 10(A) , No pain 16:45:03 73 17 92 29.9 180/88(125) NSR 0 (11) 10(A) , No pain 16:49:28 75 15 91 26.1 169/82(105) NSR 0 (11) 9(A) , No pain 16:53:52 68 18 92 28.4 171/81(120) NSR 0 (11) 9(A) , No pain 16:58:16 72 22 89 25.4 170/80(126) NSR 0 (11) 10(A) , No pain 17:02:42 72 23 90 25.4 174/78(134) NSR 0 (11) 10(A) , No pain Medications Time Medication Route Dose Verified Delivered Reason Notes Effectiveness by by 16:32:58 0.9% NaCl I.V. 100 Rodríguez Rodríguez Per ml/hr Ina Buckley physician RN RN 16:33:08 Oxygen etCO2 3 l/min Rodríguez Rodríguez for low 02 Nasal Lorigan Lorigan sats cannula RN RN 16:33:18 Heparin Flush added 2 bags Rodríguez Rodríguez used for Bag to Lormoses Buckley procedure (1000units/500ml field RN RN NS) 16:33:27 Lidocaine 2% added 20ml Rodríguez Rodríguez for local to vial Lorigan Lorigan anesthetic field RN RN 16:33:37 Radial Cocktail added 1 Rodríguez Rodríguez used for (Verapamil to syringe Lorigan Bibiigan procedure 2mg/Nitro field RN RN 400mcg/Heparin 1500units) 16:45:25 Versed I.V. 0.5 mg Rodríguez Rodríguez for sedation Ina Buckley RN RN 16:45:36 Fentanyl I.V. 50 mcg Rodríguez Rodríguez for sedation Ina Buckley RN RN 16:45:45 Radial Cocktail I.A. 1 Rodríguez Robinson for (Verapamil syringe Lorigan Tauth MD vasodilation 2mg/Nitro RN 400mcg/Heparin 1500units) 16:50:05 Versed I.V. 0.5 mg Rodríguez Rodríguez for sedation Ina Buckley RN logistics planner Log Time Note 16:05:27 Rodríguez Buckley RN sent for patient. Start room use. 16:14:27 Informed consent obtained and on chart 16:15:44 Indication : Non-Q wave PA 16:15:48 Indication : CAD 16:15:56 Indication : Paroxysmal atrial fibrillation 16:16:16 Indication : Cardiomyopathy 16:16:44 Diagnostic Cath Status : Elective 16:20:01 Lab Result : Hemoglobin 12.1 g/dl 16:20:01 Lab Result : Hematocrit 36.3 % 16:20:01 Lab Result : BUN 16 mg/dl 16:20:01 Lab Result : Creatinine 1 mg/dl 16:20:29 Admit Source: Emergency department 16:20:49 ACC Patient presents with Non-STEMI CCS Anginal Class 4--Inability to carry out any physical activity w/o angina. Angina may occur at rest. 16:21:26 Procedure Status Urgent Heart Cath (IP). 16:21:34 Time tracking: Regular hours (M-F 7:00 - 5:00) 16:21:37 Plan of Care:Hemodynamics will remain stable., Cardiac rhythm will remain stable., Comfort level will be maintained., Respiratory function will remain adequate., Patient/ family verbilizes understanding of procedure., Procedure tolerated without complication., Recovers from procedure without complications.. 16:21:42 Patient received from Med II to CCL 1 Alert and oriented. Tansferred to table in Supine position. 16:21:44 Warm blankets applied, and samir hugger turned on for patient comfort. 16:21:45 Correct patient and procedure confirmed by team. 16:21:45 ECG and BP/O2 sat monitors applied to patient. 16:21:46 Pre-procedure instructions explained to patient. 16:21:47 Pre-op teaching completed and patient verbalized understanding. 16:21:56 H&P Date Dictated: 06/30/2019 Within 30 days and on chart.. 16:22:00 Lab results completed and on chart. 16:32:58 0.9% NaCl 100 ml/hr I.V. was administered by Rodríguez Buckley RN; Per physician; 16:33:08 Oxygen 3 l/min etCO2 Nasal cannula was administered by Rodríguez Buckley RN; for low 02 sats; 16:33:18 Heparin Flush Bag (1000units/500ml NS) 2 bags added to field was administered by Rodríguez Buckley RN; used for procedure; 16:33:27 Lidocaine 2% 20ml vial added to field was administered by Rodríguez Buckley RN; for local anesthetic; 16:33:37 Radial Cocktail (Verapamil 2mg/Nitro 400mcg/Heparin 1500units) 1 syringe added to field was administered by Rodríguez Buckley RN; used for procedure; 16:33:41 Vital chart was started 16:35:10 ALLERGIES: CODIENE, CORTISONE, TROY INHIBITOR 16:35:17 Is the patient allergic to Iodine/contrast media? No. 16:35:20 Is patient on blood thinner?Yes 16:35:23 ACC The patient was administered the following blood thiners within the last 24 hours: ACCPlavix 16:35:27 Patient diabetic? No. 16:35:38 Patient not . Patient is over age 55. 16:35:43 ----Pre-sedation anethsthesia assessment.---- 16:35:47 Previous problem with sedation/anesthesia? No ? 16:35:50 Snore? Yes 16:35:51 Sleep apnea? No 16:35:53 Deviated septum? No 16:35:54 Opens mouth fully? Yes 16:35:56 Sticks out tongue? Yes 16:35:59 Airway obstruction? No ? 16:36:08 Dentures? Yes PARTIAL OUT 16:36:16 Patient pain scale 0/10 ?. 16:36:27 IV patent on arrival in left hand with 0.9% NaCl at [facility]. 16:36:33 Right Radial & Right Groin area was prepped with chlora-prep and draped in sterile fashion 16:36:35 Alarms reviewed by R. N. 16:36:37 Sharps counted by scrub and verified by R.N. 16:36:53 3a) 45-59 Moderately reduced kidney function. 16:37:16 Maximum allowable contrast dose (3.7 X eGFR X 0.75)158 ml. 16:43:45 Use device set Radial Dx or PCI 16:43:46 ACIST Syringe (91462) opened to sterile field. 16:43:47 Medline Cath Pack ([id number]) opened to sterile field. 16:43:47 Bag Decanter (2002S) opened to sterile field. 16:43:48 ACIST Hand Control (44219) opened to sterile field. 16:43:48 ACIST Manifold (25826) opened to sterile field. 16:43:49 Tegaderm 4 x 4 (1626W) opened to sterile field. 16:43:50 MBrace Wrist Support ([id number]) opened to sterile field. 16:43:53 TR BAND Standard (PIG74RIU) opened to sterile field. 16:43:55 EMERALD Guide Wire (833-543) opened to sterile field. 16:43:56 SHEATH 6FR RAIN (3219390) opened to sterile field. 16:44:35 Full Disclosure recording started 16:44:48 --------ALL STOP TIME OUT------ 16:44:48 Final Timeout: patient, procedure, and site verified with staff and physician. All members of the team are in agreement. 16:44:50 Right Radial & Right Groin site verified by team. 16:44:54 Fire Safety Assessment: A--An alcohol-based skin anteseptic being used preoperatively., C--Open oxygen or nitrous oxide is being used., D--An ESU, laser, or fiber-optic light is being used. 16:44:58 Physical assessment completed. ASA score P 2 - A patient with mild systemic disease as per Robinson Still MD. 16:45:02 Sedation plan: IV Moderate Sedation Medication:Versed, Fentanyl 16:45:18 Local anesthetic to right radial artery with Lidocaine 2% by Robinson Still MD.INITIAL ACCESS ONLY 16:45:25 Versed 0.5 mg I.V. was administered by Rodríguez Buckley RN; for sedation; 16:45:28 A 6 Fr Short sheath was inserted into the Radial artery 16:45:36 Fentanyl 50 mcg I.V. was administered by Rodríguez Buckley RN; for sedation; 16:45:42 A DIAGNOSTIC [place] 110cm 5 Fr catheter (969362) was advanced over the wire and used for Procedure. 16:45:45 Radial Cocktail (Verapamil 2mg/Nitro 400mcg/Heparin 1500units) 1 syringe I.A. was administered by Robinson Still MD; for vasodilation; 16:47:25 GLIDE WIRE Super Stiff Angled 260cm (CP6048) opened to sterile field. 16:49:13 UNABLE TO ADVANCE RADIAL ABORTED 16:49:46 SHEATH 6FR [place] (BIY886) opened to sterile field. 16:50:00 Local anesthetic to right femoral artery with Lidocaine 2% by Robinson Still MD.ADDITIONAL ACCESS 16:50:03 Use device set Multipack Set 16:50:05 Versed 0.5 mg I.V. was administered by Rodríguez Buckley RN; for sedation; 16:50:08 DIAGNOSTIC Multipack 5Fr catheter set ([id number]) opened to sterile field. 16:50:15 A 6 Fr Short sheath was inserted into the Right Femoral artery 16:50:45 A MULTIPACK 3DRC 5Fr catheter was advanced over the wire and used for Procedure. 16:51:05 Left subclavian angiography performed 16:51:30 RCA angiography performed. 16:51:35 Catheter removed. 16:51:47 A MULTIPACK JL 4.0 5Fr catheter was advanced over the wire and used for Procedure. 16:52:36 LCA angiography performed. 16:53:07 Catheter removed. 16:53:15 Zero performed for pressure channel P1 16:53:34 A MULTIPACK Pigtail 5 Fr catheter was advanced over the wire and used for Procedure. 16:54:02 LV hemodynamics recorded. 16:54:07 EF : 30 % 16:54:09 LV gram done using URENA 16:54:11 Catheter removed. 16:55:16 EXOSEAL 6Fr (EX600) opened to sterile field. 16:59:03 Sheath removed intact; hemostasis achieved with Exoseal to the Right Femoral artery. 16:59:16 Sheath removed intact; hemostasis achieved with Mechanical Compression to the Radial artery. 16:59:31 Procedure ended.(Physican Out) 16:59:43 Fluoroscopy time 02.50 minutes. 16:59:48 Fluoroscopy dose: 447 mGy 16:59:48 Flurop Dose total: 447 16:59:57 Dose Area Product 52357 mGy/cm. 17:00:03 Contrast amount:Isovue 300 75ml. 17:00:07 Maximum allowable dose exceeded? No. 17:00:09 Sharps counted by scrub and verified by R.N. 17:00:32 Insertion/operative site no bleeding no hematoma. 17:00:37 Post-op/insertion site Right Femoral artery dressed using a 4 x 4 and Tegaderm. 17:00:42 Post right femoral artery:stable 17:01:46 TR band inflated with 12cc of air. 17:01:53 Post-procedure physical assessment completed. ASA score P 2 - A patient with mild systemic disease as per Robinson Still MD. 17:02:05 Post right radial artery:stable 17:02:16 Post procedure rhythm: unchanged. 17:02:19 Estimated blood loss: 10 ml 17:02:22 Patient needs reinforcement of post procedure teaching. 17:02:23 Procedure and supply charges have been captured, reviewed, submitted and are correct. 17:02:24 Vital chart was stopped 17:02:25 See physician's report for complete and final results. 17:02:27 Report given to PCU. 17:02:30 Patient transfered to PCU with Bed. 17:02:33 Procedure ended. 17:02:33 Full Disclosure recording stopped 17:02:37 End room use (Document Last) Device Usage Item Name Manufacture Quantity Catalog Hospital Part Current Minima l Lot# / Number Charge Number Stock Stock Serial# Code ACIST Acist 1 97615 084622 088835 422366 20 PureBrands (38284[facility] Medline Medline 1 [id number] 173289 22689 431635 5 Cath Pack ([id number]) Bag Microtek 1 297262 88372 154187 5 Decanter Medical Inc. () ACIST Hand Acist 1 67125 227897 595661 470585 5 Control Medical (28148) Systems Inc ACIST Acist 1 98476 824928 543746 895230 5 Manifold Medical (18992) Systems Inc Tegaderm 4 3M 1 1626W 831383 789383 655678 5 x 4 (1626W) MBrace Advanced 1 140-0250-00 928599 17253 659602 5 Wrist Vascular Support Dynamics ([id number]) TR BAND Terumo 1 FKI16-PZE 214945 579664 071961 40 Standard (JHP89ORM) EMERALD Cardinal 1 502455 923957 932942 507442 5 Guide Wire Health (502455) SHEATH 6FR Cardinal 1 0324505 664853 8922492 675550 5 [facility] (5711594) DIAGNOSTIC Terumo 1 40-5013 096585 803922 329933 5 [place] 110cm 5 Fr catheter (134984) GLIDE WIRE Terumo 1 XZ8786 345490 533904 025032 5 Super Stiff Angled 260cm (VJ1949) SHEATH 6FR Terumo 1 NFI229 652456 766203 983788 40 [place] (PWC948) DIAGNOSTIC Cardinal 1 YT3342 833969 61189 953144 30 Multipack Health 5Fr catheter set (FZ2849) MULTIPACK Cardinal 1 037919 5 3DRC 5Fr Health catheter MULTIPACK Cardinal 1 690061 5 JL 4.0 5Fr Health catheter MULTIPACK Cardinal 1 576331 5 Pigtail 5 Health Fr catheter EXOSEAL 6Fr Cardinal 1 EX600 672658 516976 587000 10 (EX600) Health Signature Audit [place] Stage Time Signature Unsigned Intra-Procedure 07/02/2019 Gab Rose 5:03:40 PM RT(R) (CV) Signatures Performing Physician : Signature : Robinson Still MD Date : Time : Monitor : Gab Rose RT Signature : Date : Time : Nurse : Rodríguez Lorigan Signature : RN Date : Time : [address] [place] [address]
--- NOTE | 2019-06-29 22:48 | NUR ---
PT GIVEN 20 MG OF ETOMIDATE IV AND 150 MG OF SUCCINYLCHOLINE IV FROM RSI KIT FOR INTUBATION PER DR DREW ORDERS.
--- NOTE | 2019-06-29 22:52 | NUR ---
PT INTUBATED BY DR DREW WITH A 7.5 ET TUBE, 23 AT THE LIP, GOOD CHEST RISE NOTED BILATERALLY. CHEST X RAY ORDERED TO CONFIRM PLACEMENT.
[2019-06-29 23:18] LABS: BASOPHILS 0.3 % (0-2); EOSINOPHILS 0.5 % (0-7); HEMATOCRIT 48.6 % (36.0-48.0); HEMOGLOBIN 16.4 g/dL (12-16); IMMATURE GRANULOCYTES 0.5 % (0-5); LYMPHOCYTES 39.7 % (15-50); MCH 30.3 pg (26.0-34.0); MCHC 33.7 g/dL (31.0-37.0); MCV 89.8 fL (80.0-100.0); MEAN PLATELET VOLUME 10.9 fL (7.4-10.4); MONOCYTES 7.2 % (2-11); NEUTROPHILS 51.8 % (40-80); PLATELET COUNT 309 10x3/uL (130-400); RBC 5.41 10x6/uL (4.00-5.40); RDW 13.9 % (11.5-14.5); WBC 15.3 10x3/uL (4.8-10.8)
[2019-06-29 23:20] VITALS: BP 163/96
[2019-06-29 23:23] LABS: INR 1.03 (0.85-1.17)
[2019-06-29 23:30] LABS: ALBUMIN 3.5 g/dL (3.4-5.0); ALKALINE PHOSPHATASE 91 U/L (46-116); ALT (SGPT) 21 U/L (10-68); BILIRUBIN - TOTAL 0.46 mg/dL (0.2-1.3); CALC OSMOLALITY 290 mosm/kg (275-300); CARBON DIOXIDE 25.4 mmol/L (21.0-32.0); CHLORIDE - SERUM 102 mmol/L (98-107); CREATININE - SERUM 1.2 mg/dL (0.6-1.3); GLUCOSE 342 mg/dL (74-106); POTASSIUM - SERUM 4.2 mmol/L (3.5-5.1); PROTEIN - SERUM 7.5 g/dL (6.4-8.2); SODIUM 138 mmol/L (136-145); UREA NITROGEN 15 mg/dL (7-18); eGFR NON AFRICAN AMERICAN 46 mL/min (90-120)
[2019-06-29 23:39] LABS: CKMB 1.6 U/L (0.0-3.6); CREATINE KINASE 105 UL (21-215); MAGNESIUM - SERUM 2.2 mg/dL (1.8-2.4); PRO BNP 1392 pg/mL (0-450); TROPONIN-I 0.031 ng/mL (0.000-0.060)
--- NOTE | 2019-06-29 23:40 | NUR ---
UNABLE TO OBTAIN SI SCREENING AT THIS TIME PT IS INTUBATED.
[2019-06-29 23:42] VITALS: BP 113/55
[2019-06-30] VITALS (27 sets, daily range): BP systolic 92–140; BP diastolic 49–84; Ht 157.5 cm; Wt 88.7 kg
[2019-06-30 00:36] LABS: APPEARANCE CLEAR (CLEAR); BILIRUBIN NEGATIVE (NEGATIVE); COLOR YELLOW (YELLOW); GLUCOSE NEGATIVE (NEGATIVE); KETONE NEGATIVE (NEGATIVE); NITRITE NEGATIVE (NEGATIVE); PROTEIN NEGATIVE (NEGATIVE); UROBILINOGEN NORMAL (NORMAL)
--- NOTE | 2019-06-30 01:58 | NUR ---
PT REC'D FROM ED TO ROOM 2309, ALL MONITORS ESTABLISHED, PT OPENING EYES AND REACHING FOR TUBE AT TIMES, DOES NOT FOLLOW COMMANDS CONSISTENTLY, OGT TAPED SECURELY TO ETT, PT ON VENT VIA 7.5 ETT TAPED @ 24CM LIPLINE, OGT PLACEMENT CHECKED WITH SMALL AIR BOLUS AUSCULTATED OVER EPIGASTRIM, OGT PLACED TO LIWS, ABD ROUND AND SOFT, BS HYPOACTIVE, HEMPHILL PATENT DRAINING YELLOW URINE, PPP WEAK, BILAT SOFT WRIST RESTRAINTS INTACT, RIGHT FOREARM PIV WITH ZITHROMAX INFUSING AND LEFT HAND PIV WITH DIPRIVAN @ 18.21 MCG/KG/MIN OR 10.6 CC/HR, WILL MONITOR CLOSELY FOR CHANGES.
--- NOTE | 2019-06-30 02:35 | NUR ---
AND DAUGHTER BROUGHT TO BS, HISTORY OBTAINED AND QUESTIONS ANSWERED.
[2019-06-30 02:44] LABS: CKMB 3.5 U/L (0.0-3.6); CREATINE KINASE 129 UL (21-215); TROPONIN-I 0.733 ng/mL (0.000-0.060)
[2019-06-30 03:10] LABS: BASOPHILS 0.2 % (0-2); EOSINOPHILS 0.1 % (0-7); HEMATOCRIT 43.2 % (36.0-48.0); HEMOGLOBIN 14.5 g/dL (12-16); IMMATURE GRANULOCYTES 0.5 % (0-5); LYMPHOCYTES 8.6 % (15-50); MCH 30.1 pg (26.0-34.0); MCHC 33.6 g/dL (31.0-37.0); MCV 89.6 fL (80.0-100.0); MONOCYTES 9.1 % (2-11); NEUTROPHILS 81.5 % (40-80); RBC 4.82 10x6/uL (4.00-5.40)
[2019-06-30 03:11] LABS: PLATELET COUNT 284 10x3/uL (130-400)
--- NOTE | 2019-06-30 03:15 | NUR ---
LAB AT BS FOR AM LAB DRAW, CM-SR @ 62, BP STABLE, WILL CONT TO MONITOR CLOSELY FOR CHANGES.
[2019-06-30 03:17] LABS: ANION GAP 14.1 mmol/L (8-16); BILIRUBIN - TOTAL 0.55 mg/dL (0.2-1.3); CALCIUM 8.4 mg/dL (8.5-10.1); CARBON DIOXIDE 24.3 mmol/L (21.0-32.0); CREATININE - SERUM 1.1 mg/dL (0.6-1.3); MAGNESIUM - SERUM 2.1 mg/dL (1.8-2.4); POTASSIUM - SERUM 4.4 mmol/L (3.5-5.1); PROTEIN - SERUM 6.4 g/dL (6.4-8.2)
--- NOTE | 2019-06-30 03:37 | NUR ---
DR. LOPEZ NOTIFIED OF D-DIMER AND TROPONIN I WELL OTHER AM LAB, NO NEW ORDERS AT THIS TIME
--- NOTE | 2019-06-30 03:40 | NUR ---
DR. TAMI GOMEZ FOR ELEVATED TROPONIN I
--- NOTE | 2019-06-30 04:10 | NUR ---
AND DAUGHTER AT , UPDATE PROVIDED AND QUESTIONS ANSWERED.
--- NOTE | 2019-06-30 05:00 | NUR ---
REASSSESSMENT COMPLETED, PT RESTING EYES CLOSED ON VENT, DIPRIVAN CONTINUES @ 18.21 MCG/KG/MIN TO LEFT HAND, RIGHT FOREARM PIV SALINE LOCKED, SR UP X 2, BILAT SOFT WRIST RESTRAINTS INTACT, BED IN LOW POSITION, VISIBLE TO NURSES STATION.
--- NOTE | 2019-06-30 06:40 | NUR ---
UCAF NOTED ON THE MONITOR @ 135-150, BP 140/70, RESTLESS AND ATTEMPTING TO SIT UP IN BED, DIPRIVAN BOTTLE NEEDING VOLUME TO BE INFUSED, NEW BOTTLE HUNG AND RATE INCREASED TO 20MCG/KG/MIN OR 11.6CC/HR.
--- NOTE | 2019-06-30 06:50 | NUR ---
DR. TAMI GOMEZ
--- NOTE | 2019-06-30 06:55 | NUR ---
DR. GARRETT INFORMED OF ELEVATED TROPONIN AND UCAF, NEW ORDERS REC'D AT THIS TIME.
--- NOTE | 2019-06-30 07:20 | NUR ---
AWAKES EASILY TO VERBAL STIMULI, NODES APPRIOPIATELY TO VERBAL STIMULI, SQUEEZES HANDS ON REQUEST. ETT SECURE TO VENT BILATERAL LUNG SOUNDS EQUAL. OG TO INTEMITTENT SUCTION. ABD SOFT WITH BOWEL SOUNDS PRESENT. HEMPHILL CATH PATENT RICHI URINE DRAINING. HEAD OF ELEVATED 30 DEGREES. NO DISTRESS NOTED. RIGHT AC PERIPHERAL IV INFUSING WITH CARDIZEM AT 15 MG HOUR. LEFT FOREARM INFUSING WITH DIPRIVAN AT 20 MEQ KG MIN. SCD TO LOWER LEGS. MONITOR ATRIAL FIB RATE 86 TO 110.
[2019-06-30 07:42] LABS: CKMB 4.3 U/L (0.0-3.6); CREATINE KINASE 142 UL (21-215)
[2019-06-30 07:45] LABS: TROPONIN-I 1.108 ng/mL (0.000-0.060)
--- NOTE | 2019-06-30 09:00 | NUR ---
REPOSITIONED. NO DISTRESS. RESTING COMFORTABLY ON DIPRIVAN
[2019-06-30 09:31] LABS: T4 THYROXIN - FREE 0.82 ng/dL (0.76-1.46); THYROID STIMULATING HORMONE 18.83 uIU/mL (0.36-3.74)
--- NOTE | 2019-06-30 10:00 | NUR ---
ANTON TURNED OFF ON CPAP ON VENT PER DR. KEENE ORDERS
--- NOTE | 2019-06-30 10:29 | NUR ---
FAMILY HERE DAUGHTER GIVEN UPDATE. PATIENT TOLERATING CPAP WELL NO DISTRESS RESP RATE BELOW 20. TV ABOVE 1000
--- NOTE | 2019-06-30 10:32 | NUR ---
TUBE FEEDING STARTED NEPRO AT 20 ML HOUR, WITH 25 ML HOUR FLUSH Q 4 HOURS.
--- NOTE | 2019-06-30 12:24 | NUR ---
TOLERATING BI PAP WELL NO DISTRESS. PULLED UP IN BED. FAN AT BEDSIDE. ECHO IN PROGRESS
--- NOTE | 2019-06-30 12:58 | NUR ---
FAMILY HERE UPDATE GIVEN. PATEINT TOELRATING CPAP WELL NO DISTRESS. SUCTIONED SMALL AMOUNT PINK FROTHY SPUTUM PER ETT. TOLERATED WELL.
--- NOTE | 2019-06-30 13:24 | NUR ---
EXTUBATED TOLERATED FAIR. FAMILY AT BEDSIDE. ENCOURAGE NOT TO TALK FOR AT LEASE HOUR. VERBALIZED UNDERSTANDING.
--- NOTE | 2019-06-30 15:00 | NUR ---
NO RESP DISTRESS. RESP DEEP AND REGULAR. NAPPING AT INTERVALS. ICE WATER SERVED. TAKING SMALL SIPS WITHOUT COUGHING OR DIFFICULTY SWALLOWING. STATES HER THROAT IS SORE.
[2019-06-30 15:01] LABS: CKMB 2.6 U/L (0.0-3.6); CREATINE KINASE 144 UL (21-215)
[2019-06-30 15:05] LABS: TROPONIN-I 0.778 ng/mL (0.000-0.060)
--- NOTE | 2019-06-30 16:00 | NUR ---
COMPLETE HIBCLENS BATH GIVEN WITH LINEN CHANGE. TOLERATED WELL NO SHORTNESS OF BREATH. NO DIFFICULTY SIPPING ON ICE WATER. RESTING WELL. NO DISTRESS. FAMILY HERE UPDATE GIVEN.
--- NOTE | 2019-06-30 17:30 | NUR ---
PATIENT HUNGRY WOULD LIKE SOME FOOD TO EAT. DR. KEENE NOTIFIED. ORDERS RECEIVED FOR A REGULAR DIABETIC DIET, CPAP ORDERS FOR HS RECEIVED. PATIENT AND FAMILY NOTIFIED OF NEW ORDERS.
--- NOTE | 2019-06-30 18:16 | NUR ---
DIABETIC DIET SERVED. DAUGHTER AT BEDSIDE. FRESH ICE WATER PROVIDED. NO DISTRESS NOTED. NO SHORTNESS OF BREATH. COUGHING UP PINK AND RED SPUTUM.
--- NOTE | 2019-06-30 19:30 | NUR ---
REPORT REC'D AND CARE ASSUMED, REC'D PT RESTING IN BED EYES CLOSED, RESP EVEN AND UNLABORED, PT EASILY AWAKENS, ORIENTED X 4, LEFT HAND PIV SALINE LOCKED, RIGHT FOREARM PIV WITH CARDIZEM INFUSING @ 10MG/HR, CM-CAF @ 78, HEMPHILL PATENT DRAINING YELLOW URINE, BILAT SCDS INTACT AND ON, PPP, FEET COLD TO TOUCH, BLANKET APPLIED TO FEET ON REQUEST, SR UP X 2, BED IN LOW POSITION, CALL LIGHT IN REACH, PT DENIES FURTHER NEEDS.
--- NOTE | 2019-06-30 20:45 | NUR ---
EVENING MEDS GIVEN ORDERED, FSBS 199, 2 UNITS OF REGULAR INSULIN GIVEN SUBQ TO LEFT UPPER ARM, PT REPORTS SCDS BOTHERING HER, SCDS FOUND TURNED TO SIDE OF LEG, SCDS REMOVED AND REAPPLIED FOR COMFORT, PT DENIES OTHER NEEDS.
--- NOTE | 2019-06-30 21:15 | NUR ---
FAMILY AT BS VISITING PATIENT, UPDATE PROVIDED AND QUESTIONS ANSWERED.
--- NOTE | 2019-06-30 23:30 | NUR ---
REASSESSMENT COMPLETED, ROUTINE MEDS GIVEN ORDERED, DIET BARRY PROVIDED ON REQUEST, VSS, WILL MONITOR FOR CHANGES.
[2019-07-01] VITALS (14 sets, daily range): BP systolic 100–143; BP diastolic 47–85
--- NOTE | 2019-07-01 00:40 | NUR ---
RT AT BS, PT PLACED ON CPAP @ 30%, O2 SAT 99%, PT TOLERATING WELL, VSS, CALL LIGHT IN REACH, PT REQUESTED SCDS BE REMOVED, SCDS REMOVED FOR BREAK.
--- NOTE | 2019-07-01 02:30 | NUR ---
NO CHANGES IN STATUS AT THIS TIME
[2019-07-01 03:40] LABS: BASOPHILS 0.1 % (0-2); EOSINOPHILS 0.3 % (0-7); HEMATOCRIT 39.9 % (36.0-48.0); HEMOGLOBIN 13.6 g/dL (12-16); IMMATURE GRANULOCYTES 0.5 % (0-5); LYMPHOCYTES 16.3 % (15-50); MCH 30.1 pg (26.0-34.0); MCHC 34.1 g/dL (31.0-37.0); MCV 88.3 fL (80.0-100.0); MEAN PLATELET VOLUME 9.9 fL (7.4-10.4); MONOCYTES 10.3 % (2-11); NEUTROPHILS 72.5 % (40-80); RBC 4.52 10x6/uL (4.00-5.40); RDW 14.3 % (11.5-14.5); WBC 15.1 10x3/uL (4.8-10.8)
[2019-07-01 03:44] LABS: PLATELET COUNT 206 10x3/uL (130-400)
[2019-07-01 03:59] LABS: ALBUMIN 2.9 g/dL (3.4-5.0); BILIRUBIN - TOTAL 0.73 mg/dL (0.2-1.3); CALCIUM 8.2 mg/dL (8.5-10.1); CARBON DIOXIDE 28.5 mmol/L (21.0-32.0); MAGNESIUM - SERUM 1.9 mg/dL (1.8-2.4); PHOSPHOROUS 2.8 mg/dL (2.5-4.9); PROTEIN - SERUM 6.2 g/dL (6.4-8.2)
[2019-07-01 04:00] LABS: ANION GAP 12.4 mmol/L (8-16); POTASSIUM - SERUM 2.9 mmol/L (3.5-5.1)
--- NOTE | 2019-07-01 04:30 | NUR ---
SERUM POTASSIUM 2.9, 20 MEQ POTASSIUM GIVEN PO AT THIS TIME, CM-CAF @ 51, CARDIZEM REDUCED TO 5MG/HR, BP 123/74, WILL MONITOR CLOSELY FOR CHANGES.
--- NOTE | 2019-07-01 07:30 | NUR ---
AWAKE AND ALERT SKIN WARM AND DRY. DENIES PAIN. IV RIGHT AC INFUSING WITH CARDIZEM AT 5 MG HOUR. LEFT HAND SALINE LOCK IV FLUSHES WITHOUT DIFFICULTY. HEMPHILL CATH PATENT DRAINING CLEAR RICHI URINE. MONITOR SB, WITH PAC, JUNCTIONAL BEATS. ABD SORE WHEN COUGHING. STILL COUGHING UP SPUTUM WITH STREAKS OF BLOOD. RESP DEEP AND REGULAR NO DISTRESS.
--- NOTE | 2019-07-01 09:30 | NUR ---
UP ON BSC LARGE BROWN STOOL. GAIT STEADY WHEN AMBULATING. TOLERATED WELL.
--- NOTE | 2019-07-01 10:30 | NUR ---
NAPPING AT INTERVALS FAMILY HERE UPDATE GIVEN. NO DISTRESS
--- NOTE | 2019-07-01 12:20 | NUR ---
DIABETIC DIET SERVED. ATE FAIR. NO DISTRESS. UP ON BSC WITH MINIMAL ASSISTANCES
--- NOTE | 2019-07-01 13:00 | NUR ---
PATIENT HAVING ALOT ARRHYTHMIAS VENTRICULAR. DR. GARRETT HERE NOTIFIED. MAGNESIUM ORDERED.
--- NOTE | 2019-07-01 15:00 | NUR ---
NAPPING ON RIGHT SIDE. EYES CLOSED RESP DEEP AND REGULAR
--- NOTE | 2019-07-01 16:00 | NUR ---
HIBCLENS BATH GIVEN WITH PARTIAL LINEN CHANGE. HEMPHILL CATH REMOVED PATIENT TOLERATED WELL.
--- NOTE | 2019-07-01 16:46 | NUR ---
DINNER TRAY SERVED. DAUGHTER AT BEDSIDE
--- NOTE | 2019-07-01 19:19 | NUR ---
REPORT CALLED TO GENIE PATIENT TO TRANSFER TO ROOM 7785
--- NOTE | 2019-07-01 19:54 | NUR ---
RECIEVED REPORT FROM CARLOS ROTH IN ICU AT 1921. ARRIVED TO FLOOR IN W/C AT 1939. TRANSFERED SELF TO BED. ALERT AND [id number] X4. UP WITH ASSIST. O2@ 2 LITERS PER N/C. IV TO RIGHT AC AND LEFT HAND SL.. TELEMETRY IN PLACE. DENIES ANY NEEDS AT THIS TIME.
[2019-07-02] VITALS: BP 144/57
[2019-07-02 04:00] VITALS: BP 125/53
[2019-07-02 06:39] LABS: BASOPHILS 0.2 % (0-2); EOSINOPHILS 0.8 % (0-7); HEMATOCRIT 36.3 % (36.0-48.0); HEMOGLOBIN 12.1 g/dL (12-16); IMMATURE GRANULOCYTES 0.5 % (0-5); LYMPHOCYTES 14.1 % (15-50); MCHC 33.3 g/dL (31.0-37.0); MCV 89.9 fL (80.0-100.0); MONOCYTES 13.1 % (2-11); NEUTROPHILS 71.3 % (40-80); PLATELET COUNT 210 10x3/uL (130-400); RBC 4.04 10x6/uL (4.00-5.40); RDW 14.4 % (11.5-14.5)
[2019-07-02 06:59] LABS: ALBUMIN 2.8 g/dL (3.4-5.0); ANION GAP 12.8 mmol/L (8-16); BILIRUBIN - TOTAL 0.52 mg/dL (0.2-1.3); CALCIUM 8.4 mg/dL (8.5-10.1); CARBON DIOXIDE 25.9 mmol/L (21.0-32.0); MAGNESIUM - SERUM 2.2 mg/dL (1.8-2.4); PHOSPHOROUS 3.1 mg/dL (2.5-4.9); POTASSIUM - SERUM 3.7 mmol/L (3.5-5.1); PROTEIN - SERUM 6.2 g/dL (6.4-8.2)
[2019-07-02 07:06] LABS: WBC 8.2 10x3/uL (4.8-10.8)
--- NOTE | 2019-07-02 07:47 | NUR ---
ROUNDING DONE WITH PATIENT BEING NPO FOR HEART CATH. OBESE. MALE MEMBER AT BEDSIDE. RIGHT AC AND LEFT HAND BOTH SEEN SALINE LOCK, WITH ORANGE SWAB CAPS IN USE. ON 2L PER NC. BIPAP IN ROOM. ON HEART MONITOR SHWOING SR, HR 63. PERMITS ARE SIGNED. SURGICAL WIPES GIVEN TO PATIENT AND INSTRUCTED IN USE. ON EP, K+ IS 3.7. NEED RESP CULTURE, CONTAINER GIVEN TO PATIENT. CALL LIGHT IN USE.
[2019-07-02 08:30] VITALS: BP 140/52
--- NOTE | 2019-07-02 12:28 | NUR ---
STILL NPO AWAITING HEART CATH PROCEDURE.
[2019-07-02 12:32] VITALS: BP 143/52
--- NOTE | 2019-07-02 14:11 | NUR ---
STILL NPO STATUS AWAITING HEART CATH. STARTED NS TO INFUSE AT 25 CC/HR WHILE WAITING. AT BEDSIDE.
--- NOTE | 2019-07-02 15:55 | NUR ---
SPUTUM SENT TO LAB ORDERED.
--- NOTE | 2019-07-02 16:08 | NUR ---
STILL NPO FOR HEART CATH. PRE-OP MEDS HAVE BEEN GIVEN.
--- NOTE | 2019-07-02 16:17 | NUR ---
TO CHIEF CONTROLLER VIA BED.
[2019-07-02 16:26] VITALS: BP 118/56
--- NOTE | 2019-07-02 17:17 | NUR ---
1715-RETURNS FROM CLERICAL PRODUCTION WORKER WITH DRESSING TO RIGHT GROIN, C/D/I. NO HEMATOMA FELT. FAMILY AT BEDSIDE. TR BAND SEEN ALSO TO RIGHT WRIST.
[2019-07-02 20:00] VITALS: BP 173/88
--- NOTE | 2019-07-02 21:18 | NUR ---
HS MEDS GIVEN WITH FRESH ICE WATER. BS 135, NO COVERAGE GIVEN PER S/S. PT DENIES NEEDS.
[2019-07-03] VITALS: BP 157/75
--- NOTE | 2019-07-03 01:16 | NUR ---
PT HAS REFUSED TO PUT BIPAP ON ALL NIGHT STATED SHE WAS IN TOO MUCH PAIN
--- NOTE | 2019-07-03 03:41 | NUR ---
RESTING WITH EYES CLOSED, RESPERATIONS EVEN, NO S/S DISTRESS NOTED.
[2019-07-03 04:00] VITALS: BP 163/68
[2019-07-03 05:55] LABS: ALBUMIN 2.8 g/dL (3.4-5.0); ANION GAP 11.7 mmol/L (8-16); BILIRUBIN - TOTAL 0.54 mg/dL (0.2-1.3); CALCIUM 8.5 mg/dL (8.5-10.1); CREATININE - SERUM 0.9 mg/dL (0.6-1.3); MAGNESIUM - SERUM 2.1 mg/dL (1.8-2.4); PHOSPHOROUS 3.2 mg/dL (2.5-4.9); POTASSIUM - SERUM 3.7 mmol/L (3.5-5.1); PROTEIN - SERUM 6.3 g/dL (6.4-8.2)
[2019-07-03 06:44] LABS: BASOPHILS 0.2 % (0-2); EOSINOPHILS 0.7 % (0-7); HEMOGLOBIN 12.9 g/dL (12-16); IMMATURE GRANULOCYTES 0.3 % (0-5); LYMPHOCYTES 17.8 % (15-50); MCH 29.7 pg (26.0-34.0); MCHC 33.1 g/dL (31.0-37.0); MCV 89.7 fL (80.0-100.0); MONOCYTES 11.3 % (2-11); NEUTROPHILS 69.7 % (40-80); PLATELET COUNT 229 10x3/uL (130-400); RBC 4.35 10x6/uL (4.00-5.40); RDW 14.1 % (11.5-14.5); WBC 8.8 10x3/uL (4.8-10.8)
[2019-07-03 08:33] VITALS: BP 168/63
--- NOTE | 2019-07-03 09:53 | OP ---
PATIENT NAME: MARLEEN DIAZ MEDICAL RECORD: [id number] :42 LOCATION:D.M2 D.2124 ADMISSION DATE:06/30/19 SURGEON: OBDULIA GARRETT MD DATE OF OPERATION: 07/02/2019 PROCEDURES: 1. Left heart catheterization. 2. Selective coronary angiography. 3. Left ventriculogram. 4. Subclavian angiography right. INDICATION: Non-Q-wave myocardial infarction, coronary artery disease, previous PTCA stent, congestive heart failure. PROCEDURE IN DETAIL: After informed consent was obtained and after description of risks, benefits as well as alternative therapies, the patient elected to proceed with angiogram and heart catheterization. The right radial area was prepped and draped in normal sterile fashion along with the right femoral area. Both were cannulated via modified Seldinger technique with placement of 6-Maori sheath. FINDINGS: We were unable to get up past into the subclavian artery at that point of the arm. It was very tortuous. We changed to a groin approach subclavian artery, was patent, but very tortuous. The remainder of the procedure was done through the femoral approach. FINDINGS: The left ventriculogram was performed in standard 30-degree URENA view, reveals global hypokinesis, ejection fraction 30%. Previously, she had an echocardiogram revealing an ejection fraction of approximately 50%; however, it was a technically difficult study. I think the 30% ejection fraction is more accurate as to her real ejection fraction. SELECTIVE CORONARY ANGIOGRAPHY: 1. Left main is with no significant angiographic disease. 2. Left anterior descending has previously placed stents, these are widely patent with no significant restenosis. No disease elsewise at the LAD or its branches. 3. Left circumflex has moderate irregularities, but no flow-limiting stenosis. 4. The right coronary has previously placed stent. This is widely patent with no significant restenosis. No disease elsewise of the RCA or its branches. OVERALL IMPRESSION: Cardiomyopathy, ejection fraction 30%, no restenosis of the previously placed stents, no new stenosis. Center medical management and treatment of the cardiomyopathy and dysrhythmia. TRANSINT:[id number] Voice Confirmation ID: [id number] DOCUMENT ID: [id number] OPERATIVE REPORT [id number] MARLEEN DIAZ OBDULIA GARRETT MD at 0953 CC: [id number] DICTATION DATE: 07/02/19 170 DIRECTOR SCRIPT: 07/02/19 1828 ADM IN [facility] [address] [id number]
--- NOTE | 2019-07-03 09:53 | CN ---
PATIENT NAME:MARLEEN DIAZ MEDICAL RECORD: [id number] : 42 LOCATION:. D.2124 ADMIT DATE: 06/30/19 ACCOUNT: [id number] CONSULTING PHYSICIAN: OBDULIA GARRETT MD REFERRING PHYSICIAN: EBER LOPEZ MD DATE OF CONSULTATION: 06/30/2019 CARDIOLOGY CONSULTATION DIAGNOSES: 1. Respiratory failure requiring intubation. 2. Non-Q-wave myocardial infarction. 3. Coronary artery disease. 4. Previous percutaneous transluminal coronary angioplasty stent. 5. Atrial fibrillation. 6. History of paroxysmal atrial fibrillation. 7. Hypertension. 8. Hyperlipidemia. 9. Gastroesophageal reflux disease. 10. Cardiomyopathy, ischemic. 11. Congestive heart failure, chronic systolic dysfunction. HISTORY: Mrs. Diaz is known to us with a past history of coronary artery disease. Last PTCA stent in the distant past, history of cardiomyopathy, previous ejection fraction 30% range; however, last measured ejection fraction was normal. She was doing well according to the daughter until last night. She abruptly had shortness of breath. She presented in the Emergency Room in respiratory distress requiring intubation immediately. She is not having any chest discomfort at this time. Her troponin is elevated compatible with non-Q-wave myocardial infarction. She was initially in sinus rhythm. She; however, reverted to atrial fibrillation. She has a history of atrial fibrillation for which she is on diltiazem and sotalol at home. She is now on a diltiazem drip. Her atrial fibrillation rate is controlled in 160s. PHYSICAL EXAMINATION: GENERAL APPEARANCE: Well-nourished, well-developed, appears stated age. Level of distress, comfortable. PSYCHIATRIC: Mental status, alert, normal affect. Orientation, oriented to time, place and person. EYES: Lids and conjunctiva, noninjected. No discharge, no pallor. ENT: Lips, teeth, gums, normal dentition. Oropharynx, no cyanosis, no pallor. NECK: Carotid arteries, bilateral normal upstroke, no bruits, no thrills. JUGULAR VEINS: No jugular venous pressure or distention. CERVICAL LYMPH NODES: Nontender, nonenlarged. THYROID: Not enlarged. Nontender. No nodules. LUNGS: Respiratory effort, unlabored. CHEST: Normal curvature. No thoracic deformity. No chest wall tenderness. Percussion, resonant. Auscultation, clear. No wheezes, no rales, no rhonchi. CARDIOVASCULAR: Precordial exam, nondisplaced. No heaves or pericardial thrills. Rate and rhythm, regular. Heart sounds, normal S1, normal S2. No S3, no gallop, no rub. Systolic murmur, not heard. Diastolic murmur, not heard. EXTREMITIES: No cyanosis, no edema. Peripheral pulses, full and equal in all extremities, except as noted. No bruits appreciated. ABDOMEN: Soft, nondistended. Normal aorta. No bruit. Nontender. No masses. Liver, nontender, no hepatomegaly. Spleen, nontender, no splenomegaly. CONSULT REPORT [id number] MARLEEN DIAZ MUSCULOSKELETAL: No joint tenderness. No joint swelling. No erythema. NEUROLOGICAL: Normal gait, normal strength, normal tone. SKIN: Warm and dry. OVERALL IMPRESSION: 1. Non-Q-wave myocardial infarction. She very well has recurrent hemodynamically significant coronary artery disease. Plan for coronary angiography when she is stable from a respiratory standpoint. 2. Respiratory failure. She has had good diuresis. She is being weaned from the vent, most likely be extubated today. Continue diuretics. 3. Atrial fibrillation. We will restart her Betapace, giving her ng dose now, p.o. dose when she is able to take p.o. Continue the diltiazem drip. Discontinue that when she is able to take p.o. and put her back on her oral diltiazem. She is on Lovenox. At the time of cardiac catheterization, if she is still in atrial fibrillation, we will be able to do DC cardioversion at that time. TRANSINT:[id number] Voice Confirmation ID: [id number] DOCUMENT ID: [id number] OBDULIA GARRETT MD at 0953 CC: [id number] DICTATION DATE: 06/30/19 1047 BUILDING EQUIPMENT INSPECTOR: 06/30/19 1118 ADM IN [place] [id number] [place] [address]
--- NOTE | 2019-07-03 09:53 | EC ---
PATIENT:MARLEEN DIAZ DATE OF SERVICE: 06/30/19 SEX: F MEDICAL RECORD: [id number] DATE OF : 42 LOCATION:D.M2 D.212 AGE OF PATIENT: 78 ADMISSION DATE: 06/30/19 REFERRING PHYSICIAN: INTERPRETING PHYSICIAN: OBDULIA STILL MD ECHOCARDIOGRAM REPORT ECHO CHARGES 4 ECHO COMPLETE Date: 06/30/19 CLINICAL DIAGNOSIS: AFIB/CHF ECHOCARDIOGRAPHIC MEASUREMENTS (adult normal given) AC root (d.<3.7cm) 2.7 cm LV Septum d (<1.2 cm> 1.4 cm Valve Excursion 1.2 cm LV Septum (systole) 1.9 cm Left Atria (s.<4.0cm> 4.1 cm LVPW d(<1.2cm) 1.5 cm RV (d.<2.3cm) 2.7 cm LVPW (sytole) 1.8 cm LV diastole(<5.6CM) 5.0 cm MV E-F(>70mm/sec) cm LV systole 3.7 cm LVOT Diameter 2.2 cm MV exc.(>10mm) 1.3 cm Est.ejection fraction (50-75%) % DOPPLER: LVIT cm/sec A 35.0 cm/sec E 83.0 cm/sec LA cm/sec RVSP 21 mmHg LVOT 96 cm/sec AOP1/2T m/s Asc. Ao 153 cm/sec RVOT 101 cm/sec RA cm/sec PA 167 cm/sec AV Gradient Peak 9.41 mmHg AV Mean 6.25 mmHg AV Area 1.9 cm MV Gradient Peak 4.82 mmHg MV Mean 1.77 mmHg MV Area cm COMMENTS: Maintenance Controller: Patricia GARCIA Engine Repairer: 1 Dr. Still TAPE# PACS Pericardial Effusion N DATE OF SERVICE: 07/01/2019 FINDINGS: 1. Left ventricular chamber size is within normal limits. Left ventricular systolic function is normal. Overall ejection fraction is estimated at 50%. 2. Left atrium is enlarged at 4.1 cm. Right atrium and right ventricular chamber sizes are within normal limit. 3. Valvular structures have normal structure and motion. 4. Doppler interrogation reveals no significant valvular insufficiency or stenosis. Pulmonary systolic pressure is normal, estimated at 21 mmHg. ECHOCARDIOGRAM REPORT [id number] MARLEEN DIAZ 5. No evidence of pericardial effusion or left ventricular thrombus. TRANSINT:[id number] Voice Confirmation ID: [id number] DOCUMENT ID: [id number] OBDULIA STILL MD at 0953 CC: [id number] DICTATION DATE: 07/01/19 1253 QUILLER TENDER: 07/01/19 1703 ADM IN [facility] [address] [place] [address]
[2019-07-03 11:49] VITALS: BP 139/55
--- NOTE | 2019-07-03 13:07 | MORECARE ---
CASE MANAGEMENT DISCHARGE SUMMARY PATIENT: MARLEEN DIAZ UNIT: [id number] ADM DATE: 06/30/19 AGE: 78 : 41 SEX: F ROOM/BED: D.2124 AUTHOR: ALIDA MARTINEZ PHYSICIAN: REFERRING PHYSICIAN: EBER LOPEZ MD DATE OF SERVICE: 07/03/19 Discharge Plan Patient Name: MARLEEN DIAZ Facility: [facility]:[place] : 1940 Planned Disposition: Home Anticipated Discharge Date: 07/04/19 Discharge Date: Expected LOS: 4 Initial Reviewer: [email or web address] Initial Review Date: 07/03/2019 Generated: 07/03/19 2:07 pm Coverage Notice Reviewer: [email or web address] Duong Fagan Notice Issued Date-Time: 07/03/2019 9:00 Notice Type: IM Discharge Notice Notice Delivered To: Patient Relationship to Patient: Shoe Ironer Name: Delivery Method: HAND - Hand Delivered Yola Days: Prior Verbal Notification: Recipient Understood Notice: Yes Recipient Signature: Yes Med Rec Note Co-signed by Attending: Coverage Notice Comment: Patient Name: MARLEEN DIAZ Page [phone] at 1307 All edits/amendments must be made on the electronic document DICTATION DATE: 07/03/19 1307 SALES REPRESENTATIVE ADVERTISING: JULIA 07/03/19 1307 RPT#: [id number] DC DATE: STATUS: ADM IN [place] [address] [place] [address] END OF REPORT
--- NOTE | 2019-07-03 13:15 | MORECARE ---
CASE MANAGEMENT DISCHARGE SUMMARY PATIENT: MARLEEN DIAZ UNIT: [id number] ADM DATE: 06/30/19 AGE: 78 : 41 SEX: F ROOM/BED: D.3445 AUTHOR: JUAN,DOC PHYSICIAN: REFERRING PHYSICIAN: EBER LOPEZ MD DATE OF SERVICE: 07/03/19 Discharge Plan Patient Name: MARLEEN DIAZ Facility: [facility]:[place] : 1940 Planned Disposition: Home Anticipated Discharge Date: 07/04/19 Discharge Date: Expected LOS: 4 Initial Reviewer: [email or web address] Initial Review Date: 07/03/2019 Generated: 07/03/19 2:15 pm Comments DCP- Discharge Planning Updated by [email or web address]: Alonzo Fagan on 07/03/19 12:[address] Patient Name: MARLEEN DIAZ Admission Status: ER Accout number: [id number] Admission Date: 06-30-2019 : 1940 Admission Diagnosis:SHORTNESS OF BREATH Attending: EBER LOPEZ Current LOS: 3 Anticipated DC Date: 07-04-2019 Planned Disposition: Home Primary Insurance: MEDICARE A & B Discharge Planning Comments: CM MET WITH PT IN ROOM TO DISCUSS DISCHARGE PLANNING AND NEEDS. PT REPORTS LIVING AT HOME INDEPENDENTLY WITH HER SPOUSE. PT HAS NO MEDICAL EQUIPMENT AND NO OUTSIDE SERVICES ASSISTING IN THE HOME. CM DISCUSSED AVAILABILITY OF HOME HEALTH, REHAB SERVICES AND MEDICAL EQUIPMENT. PT DENIES DISCHARGE NEEDS, REPORTS HER SPOUSE WILL PICK HER UP FOR DISCHARGE HOME. IMPORTANT MESSAGE FROM MEDICARE PROVIDED AND EXPLAINED. Dermatology Specialist: Alonzo Fagan DCPIA - Discharge Planning Initial Assessment Updated by [email or web address]: Alonzo Fagan on 07/03/19 1:08 pm * Is the patient Alert and Oriented? Yes * How many steps to enter\exit or inside your home? NONE * PCP DR. WEAVER * Pharmacy [facility] - SH[facility] TERM HU[facility]NA MAIL ORDER - ASSET MANAGEMENT COORDINATOR * Preadmission Environment Home with Family * ADLs Independent * Equipment None * Other Equipment NO MEDICAL EQUIPMENT PROVIDER PREFERENCE * List name and contact numbers for known caregivers / representatives who currently or will assist patient after discharge: JEFFERY DIAZ, SPOUSE, * Verbal permission to speak to the caregivers and representatives has been obtained from the patient. N/A * Community resources currently utilized None * Please name any agencies selected above. NONE * Additional services required to return to the preadmission environment? No * Has this patient been hospitalized within the prior 30 days at any hospital? No Coverage Notice Reviewer: [id number] Duong Rosado Gracia Notice Issued Date-Time: 07/03/2019 9:00 Notice Type: IM Discharge Notice Notice Delivered To: Patient Relationship to Patient: Stereotyper Helper Name: Delivery Method: HAND - Hand Delivered Yola Days: Prior Verbal Notification: Recipient Understood Notice: Yes Recipient Signature: Yes Med Rec Note Co-signed by Attending: Coverage Notice Comment: Last DP export: 07/03/19 12:07 pm Patient Name: MARLEEN DIAZ Page [id number] at 1315 All edits/amendments must be made on the electronic document DICTATION DATE: 07/03/19 1315 TECHNICAL MARKETING CONSULTANT: JULIA 07/03/19 1315 RPT#: [id number] DC DATE: STATUS: ADM IN [facility] [address] [place] [address] END OF REPORT
--- NOTE | 2019-07-03 14:12 | NUR ---
Nutrition Follow-up: Pt reports improvement in appetite/PO intake. Eating lunch at time of visit. Diet: AHA PO intake: 50-75% of meals Last BM: 07/02 Labs noted: Alb 2.8, Glu 113 Meds reviewed Rec continue current diet as tolerated. [place] food preferences within diet restrictions. RD following.
[2019-07-03 15:26] VITALS: BP 154/60
--- NOTE | 2019-07-03 19:38 | NUR ---
ASSESSMENT COMPLETE, PT A&O. RESPERATIONS EVEN ON RA. IV TO RIGHT AC SL. DRSGS TO RIGHT WRIST AND RIGHT GROIN C/D/I. PEDAL PULSES PRESENT. PT DENIES PAIN OR NEEDS, BED LOW, CL IN REACH.
[2019-07-03 20:00] VITALS: BP 166/62
--- NOTE | 2019-07-03 20:44 | NUR ---
HS MEDS GIVEN WITH FRESH ICE WATER. BS 116, NO COVERAGE NEEDED PER S/S. IV RESITED TO INNER LEFT FOREARM, 22 GUAGE. FIRST ATTEMPT, PT TOLERATED WELL. HUMIDIFICATION ADDED TO NC AT PT REQUEST FOR C/O DRY BLOODY NOSE. NO OTHER NEEDS VOICED AT THIS TIME, BED LOW, CL IN REACH.
[2019-07-04 01:05] VITALS: BP 121/54
[2019-07-04 05:36] VITALS: BP 98/52
[2019-07-04 06:34] LABS: BASOPHILS 0.2 % (0-2); HEMATOCRIT 43.1 % (36.0-48.0); HEMOGLOBIN 14.6 g/dL (12-16); IMMATURE GRANULOCYTES 0.5 % (0-5); LYMPHOCYTES 16.5 % (15-50); MCH 29.9 pg (26.0-34.0); MCHC 33.9 g/dL (31.0-37.0); MCV 88.1 fL (80.0-100.0); MEAN PLATELET VOLUME 10.8 fL (7.4-10.4); MONOCYTES 13.3 % (2-11); NEUTROPHILS 68.5 % (40-80); PLATELET COUNT 254 10x3/uL (130-400); RBC 4.89 10x6/uL (4.00-5.40); RDW 13.8 % (11.5-14.5); WBC 9.8 10x3/uL (4.8-10.8)
[2019-07-04 07:14] LABS: ALBUMIN 2.9 g/dL (3.4-5.0); BILIRUBIN - TOTAL 0.41 mg/dL (0.2-1.3); CALCIUM 8.6 mg/dL (8.5-10.1); CARBON DIOXIDE 23.7 mmol/L (21.0-32.0); CREATININE - SERUM 0.9 mg/dL (0.6-1.3); POTASSIUM - SERUM 3.7 mmol/L (3.5-5.1); PROTEIN - SERUM 6.8 g/dL (6.4-8.2)
--- NOTE | 2019-07-04 07:29 | MORECARE ---
CASE MANAGEMENT DISCHARGE SUMMARY PATIENT: MARLEEN DIAZ UNIT: [id number] ADM DATE: 06/30/19 AGE: 78 : 41 SEX: F ROOM/BED: D.2194 AUTHOR: JUAN,DOC PHYSICIAN: REFERRING PHYSICIAN: EBER LOPEZ MD DATE OF SERVICE: 07/04/19 Discharge Plan Patient Name: MARLEEN DIAZ Facility: [facility]:[place] : 1940 Planned Disposition: Home Anticipated Discharge Date: 07/04/19 Discharge Date: Expected LOS: 4 Initial Reviewer: [email or web address] Initial Review Date: 07/03/2019 Generated: 07/04/19 8:28 am Comments DCP- Discharge Planning Updated by [email or web address]: Alonzo Fagan on 07/03/19 12:[address] Patient Name: MARLEEN DIAZ Admission Status: ER Accout number: [id number] Admission Date: 06-30-2019 : 1940 Admission Diagnosis:SHORTNESS OF BREATH Attending: EBER LOPEZ Current LOS: 3 Anticipated DC Date: 07-04-2019 Planned Disposition: Home Primary Insurance: MEDICARE A & B Discharge Planning Comments: CM MET WITH PT IN ROOM TO DISCUSS DISCHARGE PLANNING AND NEEDS. PT REPORTS LIVING AT HOME INDEPENDENTLY WITH HER SPOUSE. PT HAS NO MEDICAL EQUIPMENT AND NO OUTSIDE SERVICES ASSISTING IN THE HOME. CM DISCUSSED AVAILABILITY OF HOME HEALTH, REHAB SERVICES AND MEDICAL EQUIPMENT. PT DENIES DISCHARGE NEEDS, REPORTS HER SPOUSE WILL PICK HER UP FOR DISCHARGE HOME. IMPORTANT MESSAGE FROM MEDICARE PROVIDED AND EXPLAINED. Craft Demonstrator: Alonzo Fagan DCPIA - Discharge Planning Initial Assessment Updated by [email or web address]: Alonzo Fagan on 07/03/19 1:08 pm * Is the patient Alert and Oriented? Yes * How many steps to enter\exit or inside your home? NONE * PCP DR. WEAVER * Pharmacy [facility] [address] - [facility] TERM HUMANA MAIL ORDER - LUMBER CHECKER * Preadmission Environment Home with Family * ADLs Independent * Equipment None * Other Equipment NO MEDICAL EQUIPMENT PROVIDER PREFERENCE * List name and contact numbers for known caregivers / representatives who currently or will assist patient after discharge: JEFFERY DIAZ, SPOUSE, * Verbal permission to speak to the caregivers and representatives has been obtained from the patient. N/A * Community resources currently utilized None * Please name any agencies selected above. NONE * Additional services required to return to the preadmission environment? No * Has this patient been hospitalized within the prior 30 days at any hospital? No Coverage Notice Reviewer: [id number] Duong Rosado Gracia Notice Issued Date-Time: 07/03/2019 9:00 Notice Type: IM Discharge Notice Notice Delivered To: Patient Relationship to Patient: Hat Body Inspector Name: Delivery Method: HAND - Hand Delivered Yola Days: Prior Verbal Notification: Recipient Understood Notice: Yes Recipient Signature: Yes Med Rec Note Co-signed by Attending: Coverage Notice Comment: Last DP export: 07/03/19 12:15 pm Patient Name: MARLEEN DIAZ Page 23515 at 0729 All edits/amendments must be made on the electronic document DICTATION DATE: 07/04/19727 MOVING VAN DRIVER: JULIA 07/04/19727 RPT#: [id number] DC DATE: STATUS: ADM IN [facility] [address] [place] [address] END OF REPORT
--- NOTE | 2019-07-04 07:44 | NUR ---
RECIEVED REPORT. PATIENT IS RESTING QUIETLY A THIS TIME. DENIES ANY NEEDS AT THIS TIME.
[2019-07-04 08:32] VITALS: BP 108/69
--- NOTE | 2019-07-04 09:39 | MORECARE ---
CASE MANAGEMENT DISCHARGE SUMMARY PATIENT: MARLEEN DIAZ UNIT: [id number] ADM DATE: 06/30/19 AGE: 78 : 41 SEX: F ROOM/BED: D.8207 AUTHOR: JUAN,DOC PHYSICIAN: REFERRING PHYSICIAN: EBER LOPEZ MD DATE OF SERVICE: 07/04/19 Discharge Plan Patient Name: MARLEEN DIAZ Facility: [facility]:[place] : 1940 Planned Disposition: Home Anticipated Discharge Date: 07/04/19 Discharge Date: Expected LOS: 4 Initial Reviewer: [email or web address] Initial Review Date: 07/03/2019 Generated: 07/04/19 10:39 am Comments DCP- Discharge Planning Updated by [id number]: Alonzo Fagan on 07/03/19 12:[address] Patient Name: MARLEEN DIAZ Admission Status: ER Accout number: [id number] Admission Date: 06-30-2019 : 1940 Admission Diagnosis:SHORTNESS OF BREATH Attending: EBER LOPEZ Current LOS: 3 Anticipated DC Date: 07-04-2019 Planned Disposition: Home Primary Insurance: MEDICARE A & B Discharge Planning Comments: CM MET WITH PT IN ROOM TO DISCUSS DISCHARGE PLANNING AND NEEDS. PT REPORTS LIVING AT HOME INDEPENDENTLY WITH HER SPOUSE. PT HAS NO MEDICAL EQUIPMENT AND NO OUTSIDE SERVICES ASSISTING IN THE HOME. CM DISCUSSED AVAILABILITY OF HOME HEALTH, REHAB SERVICES AND MEDICAL EQUIPMENT. PT DENIES DISCHARGE NEEDS, REPORTS HER SPOUSE WILL PICK HER UP FOR DISCHARGE HOME. IMPORTANT MESSAGE FROM MEDICARE PROVIDED AND EXPLAINED. Plush Brusher: Alonzo Fagan DCPIA - Discharge Planning Initial Assessment Updated by [email or web address]: Alonzo Fagan on 07/03/19 1:08 pm * Is the patient Alert and Oriented? Yes * How many steps to enter\exit or inside your home? NONE * PCP DR. WEAVER * Pharmacy [facility] [address] - [facility] MAIL ORDER - LONG-TERM * Preadmission Environment Home with Family * ADLs Independent * Equipment None * Other Equipment NO MEDICAL EQUIPMENT PROVIDER PREFERENCE * List name and contact numbers for known caregivers / representatives who currently or will assist patient after discharge: JEFFERY DIAZ, SPOUSE, * Verbal permission to speak to the caregivers and representatives has been obtained from the patient. N/A * Community resources currently utilized None * Please name any agencies selected above. NONE * Additional services required to return to the preadmission environment? No * Has this patient been hospitalized within the prior 30 days at any hospital? No External Providers External Provider: [facility] Patient-[place] Next Contact Date: 07/04/2019 Service Request Date: Service Type: Resolution: Reviewer: Comments: Coverage Notice Reviewer: [id number] - Alonoz Fagan Notice Issued Date-Time: 07/03/2019 9:00 Notice Type: IM Discharge Notice Notice Delivered To: Patient Relationship to Patient: Machine Bunch Maker Name: Delivery Method: HAND - Hand Delivered Yola Days: Prior Verbal Notification: Recipient Understood Notice: Yes Recipient Signature: Yes Med Rec Note Co-signed by Attending: Coverage Notice Comment: Last DP export: 07/04/19 6:29 am Patient Name: MARLEEN DIAZ Page [id number] at 0939 All edits/amendments must be made on the electronic document DICTATION DATE: 07/04/19938 METAL SLITTER: JULIA 07/04/19938 RPT#: [id number] DC DATE: STATUS: ADM IN [facility] [address] [place] [address] END OF REPORT
--- NOTE | 2019-07-04 09:56 | NUR ---
PULSE IS WEAK ON RIGHT SIDE, WRIST, AND PEDAL PULSE. PATIENT REPORTS THAT HER TOES HAVE BEEN NUMB FOR 2 YEARS. DRESSING OVER INCISION SITES ATE CLEAN DRY AND INTACT. NO HEMATOMA NOTED. PATIENT IS ALERT AND AWAKE WITH VISITORS AT BEDSIDE. RESPIRATORY HAS PERFORMED A WALK TEST.
--- NOTE | 2019-07-04 11:23 | MORECARE ---
CASE MANAGEMENT DISCHARGE SUMMARY PATIENT: MARLEEN DIAZ UNIT: [id number] ADM DATE: 06/30/19 AGE: 78 : 41 SEX: F ROOM/BED: D.9367 AUTHOR: JUAN,DOC PHYSICIAN: REFERRING PHYSICIAN: EBER LOPEZ MD DATE OF SERVICE: 07/04/19 Discharge Plan Patient Name: MARLEEN DIAZ Facility: [facility]:[place] : 1940 Planned Disposition: Home Anticipated Discharge Date: 07/04/19 Discharge Date: Expected LOS: 4 Initial Reviewer: [id number] Initial Review Date: 07/03/2019 Generated: 07/04/19 12:22 pm Comments DCP- Discharge Planning Updated by [email or web address]: Alonzo Fagan on 07/03/19 12:[address] Patient Name: MARLEEN DIAZ Admission Status: ER Accout number: [id number] Admission Date: 06-30-2019 : 1940 Admission Diagnosis:SHORTNESS OF BREATH Attending: EBER LOPEZ Current LOS: 3 Anticipated DC Date: 07-04-2019 Planned Disposition: Home Primary Insurance: MEDICARE A & B Discharge Planning Comments: CM MET WITH PT IN ROOM TO DISCUSS DISCHARGE PLANNING AND NEEDS. PT REPORTS LIVING AT HOME INDEPENDENTLY WITH HER SPOUSE. PT HAS NO MEDICAL EQUIPMENT AND NO OUTSIDE SERVICES ASSISTING IN THE HOME. CM DISCUSSED AVAILABILITY OF HOME HEALTH, REHAB SERVICES AND MEDICAL EQUIPMENT. PT DENIES DISCHARGE NEEDS, REPORTS HER SPOUSE WILL PICK HER UP FOR DISCHARGE HOME. IMPORTANT MESSAGE FROM MEDICARE PROVIDED AND EXPLAINED. Machine Stone Polisher: Alonzo Fagan DCPIA - Discharge Planning Initial Assessment Updated by [id number]: Alonzo Fagan on 07/03/19 1:08 pm * Is the patient Alert and Oriented? Yes * How many steps to enter\exit or inside your home? NONE * PCP DR. WEAVER * Pharmacy [facility] [address] [facility] * Preadmission Environment Home with Family * ADLs Independent * Equipment None * Other Equipment NO MEDICAL EQUIPMENT PROVIDER PREFERENCE * List name and contact numbers for known caregivers / representatives who currently or will assist patient after discharge: JEFFERY DIAZ, SPOUSE, * Verbal permission to speak to the caregivers and representatives has been obtained from the patient. N/A * Community resources currently utilized None * Please name any agencies selected above. NONE * Additional services required to return to the preadmission environment? No * Has this patient been hospitalized within the prior 30 days at any hospital? No External Providers External Provider: Frances Mena Next Contact Date: 07/04/2019 Service Request Date: Service Type: Resolution: Reviewer: Comments: Coverage Notice Reviewer: [id number] - Alonzo Fagan Notice Issued Date-Time: 07/03/2019 9:00 Notice Type: IM Discharge Notice Notice Delivered To: Patient Relationship to Patient: Paper Sales Representative Name: Delivery Method: HAND - Hand Delivered Yola Days: Prior Verbal Notification: Recipient Understood Notice: Yes Recipient Signature: Yes Med Rec Note Co-signed by Attending: Coverage Notice Comment: Last DP export: 07/04/19 8:39 am Patient Name: MARLEEN DIAZ Page [phone] at 1123 All edits/amendments must be made on the electronic document DICTATION DATE: 07/04/19 112 COTTAGE SUPERVISOR: JULIA 07/04/19 1122 RPT#: [id number] DC DATE: STATUS: ADM IN [facility] [address] [place] [address] END OF REPORT
--- NOTE | 2019-07-04 11:43 | MORECARE ---
CASE MANAGEMENT DISCHARGE SUMMARY PATIENT: MARLEEN DIAZ UNIT: [id number] ADM DATE: 06/30/19 AGE: 78 : 41 SEX: F ROOM/BED: D.8572 AUTHOR: JUAN,DOC PHYSICIAN: REFERRING PHYSICIAN: EBER LOPEZ MD DATE OF SERVICE: 07/04/19 Discharge Plan Patient Name: MARLEEN DIAZ Facility: [facility]:[place] : 1940 Planned Disposition: Home Anticipated Discharge Date: 07/04/19 Discharge Date: Expected LOS: 4 Initial Reviewer: [id number] Initial Review Date: 07/03/2019 Generated: 07/04/19 12:42 pm Comments DCP- Discharge Planning Updated by [id number]: Alonzo Fagan on 07/04/19 10:[address] Patient Name: MARLEEN DIAZ Encounter No: [id number] : 1940 Primary Insurance: MEDICARE A & B Anticipated DC Date: 07-04-2019 Planned Disposition: Home DCP follow-up note: CM RECEIVED ORDER FOR OXYGEN TESTING AND NEBULIZER. CM MET WITH PT IN [place], DISCUSSED MEDICAL EQUIPMENT PROVIDERS, LISTING GIVEN. PT HAS FIRST CHOICE OF [facility] AND [facility]. PT REPORTS SPOUSE TO TRANSPORT HOME. CM DISCUSSED AVAILABILITY OF REHAB AND HOME HEALTH SERVICES, OBSERVED AND VERBALIZED THAT PT FELT TOO WEAK TO GO HOME YESTERDAY. PT DENIES DISCHARGE NEEDS, REPORTS FEELING STRONG ENOUGH TO RETURN HOME AND EXERCISE ON HER OWN. CM CALLED [facility], SPOKE TO DANNY WHO WILL PROCESS ORDER FOR NEBULIZER. CM RECEIVED OXYGEN TESTING, PT DID NOT QUALIFY FOR HOME OXYGEN. CM FAXED ORDER AND SUPPORTING CHART NOTES TO [facility]. CM RECEIVED CALL FROM DANNY OF [facility] WHO INFORMED CM THAT CHART NOTES NOT ADEQUATE FOR INSURANCE TO PAY FOR NEBULIZER, SUGGESTED [facility] WHO WOULD SELL NEBULIZER FOR $31 PLUS TAX. CM SPOKE TO PT IN ROOM AND DR. BURKS VIA PHONE. DR. BURKS INFORMED CM THAT CHART NOTES INDICATING DIAGNOSIS OF ASTHMA SHOULD BE SUFFICIENT, PT ASKED FOR CM TO TRY [facility]. CATERINA CALLED [facility], , SPOKE TO BARON WHO INFORMED CM THAT INSURANCE WILL COVER NEBULIZER AND THEY CAN MAIL ORDER THE MEDICATION, PT WILL NEED ONE MONTH SUPPLY FROM HER PHARMACY TO ALLOW FOR MAIL ORDER PROCESSING FOR FUTURE NEB MEDICATIONS. CM NOTIFIED SCANNING TECH NURSE. CM FAXED ORDER FOR NEBULIZER AND MEDICATIONS TO [facility] AT [phone]. [facility] TO ARRANGE NEBULIZER DELVERY TO PT'S ROOM FOR DISCHARGE HOME TODAY. PT WILL NEED TO PRODUCT MARKETING COORDINATOR ONE MONTH OF NEB MEDICATIONS AT HER PHARMACY, [facility] WILL ARRANGE MAIL ORDER DELIVERY FOR REMAINING MONTHS OF NEB MEDS. Alonzo Fagan. CASE MANAGEMENT DCP- Discharge Planning Updated by [id number]: Alonoz Fagan on 07/03/19 12:[address] Patient Name: MARLEEN DIAZ Admission Status: ER Accout number: [id number] Admission Date: 06-30-2019 : 1940 Admission Diagnosis:SHORTNESS OF BREATH Attending: EBER LOPEZ Current LOS: 3 Anticipated DC Date: 07-04-2019 Planned Disposition: Home Primary Insurance: MEDICARE A & B Discharge Planning Comments: CM MET WITH PT IN ROOM TO DISCUSS DISCHARGE PLANNING AND NEEDS. PT REPORTS LIVING AT HOME INDEPENDENTLY WITH HER SPOUSE. PT HAS NO MEDICAL EQUIPMENT AND NO OUTSIDE SERVICES ASSISTING IN THE HOME. CM DISCUSSED AVAILABILITY OF HOME HEALTH, REHAB SERVICES AND MEDICAL EQUIPMENT. PT DENIES DISCHARGE NEEDS, REPORTS HER SPOUSE WILL PICK HER UP FOR DISCHARGE HOME. IMPORTANT MESSAGE FROM MEDICARE PROVIDED AND EXPLAINED. Webmethods Consultant: Alonzo Fagan DCPIA - Discharge Planning Initial Assessment Updated by [id number]: Alonzo Fagan on 07/03/19 1:08 pm * Is the patient Alert and Oriented? Yes * How many steps to enter\exit or inside your home? NONE * PCP DR. WEAVER * Pharmacy [facility] [address] [facility] - [place] * Preadmission Environment Home with Family * ADLs Independent * Equipment None * Other Equipment NO MEDICAL EQUIPMENT PROVIDER PREFERENCE * List name and contact numbers for known caregivers / representatives who currently or will assist patient after discharge: JEFFERY DIAZ, SPOUSE, * Verbal permission to speak to the caregivers and representatives has been obtained from the patient. N/A * Community resources currently utilized None * Please name any agencies selected above. NONE * Additional services required to return to the preadmission environment? No * Has this patient been hospitalized within the prior 30 days at any hospital? No Coverage Notice Reviewer: [id number] Duong Rosado Gracia Notice Issued Date-Time: 07/03/2019 9:00 Notice Type: IM Discharge Notice Notice Delivered To: Patient Relationship to Patient: Mailer Apprentice Name: Delivery Method: HAND - Hand Delivered Yola Days: Prior Verbal Notification: Recipient Understood Notice: Yes Recipient Signature: Yes Med Rec Note Co-signed by Attending: Coverage Notice Comment: Last DP export: 07/04/19 10:23 am Patient Name: MARLEEN DIAZ Page [phone] at 1143 All edits/amendments must be made on the electronic document DICTATION DATE: 07/04/19 1142 AWAKE OVERNIGHT COUNSELOR: JULIA 07/04/19 1142 RPT#: [id number] DC DATE: STATUS: ADM IN [facility] [address] [place] [address] END OF REPORT
[2019-07-04 12:43] VITALS: BP 109/71
[2019-07-04] MEDS ORDERED: ENTRESTO 24 MG1 EACH PO (15:17)
[2019-07-04] MEDS ORDERED: OMNICEF300 MG PO (15:20)
[2019-07-04] MEDS ORDERED: ATROVENT 0.02%2.5 ML UPD (17:26)
--- NOTE | 2019-07-04 19:10 | NUR ---
IV TO LEFT ARM TAKEN OUT, DISCHARGE PAPER WORK SIGNED.
--- NOTE | 2019-07-05 08:43 | MORECARE ---
CASE MANAGEMENT DISCHARGE SUMMARY PATIENT: MARLENE DIAZ UNIT: [id number] ADM DATE: 06/30/19 AGE: 78 : 41 SEX: F ROOM/BED: D.0743 AUTHOR: JUAN,DOC PHYSICIAN: REFERRING PHYSICIAN: EBER LOPEZ MD DATE OF SERVICE: 07/05/19 Discharge Plan Patient Name: MARLEEN DIAZ Facility: [facility]:[place] : 1940 Planned Disposition: Home Anticipated Discharge Date: 07/04/19 Discharge Date: 07/04/2019 Expected LOS: 4 Initial Reviewer: [id number] Initial Review Date: 07/03/2019 Generated: 07/05/19 9:43 am Comments DCP- Discharge Planning Updated by [id number]: Alonzo Fagan on 07/04/19 10:[address] Patient Name: MARLEEN DIAZ Encounter No: [id number] : 1940 Primary Insurance: MEDICARE A & B Anticipated DC Date: 07-04-2019 Planned Disposition: Home DCP follow-up note: CM RECEIVED ORDER FOR OXYGEN TESTING AND NEBULIZER. CM MET WITH PT IN [place], DISCUSSED MEDICAL EQUIPMENT PROVIDERS, LISTING GIVEN. PT HAS FIRST CHOICE OF [facility] AND [facility]. PT REPORTS SPOUSE TO TRANSPORT HOME. CM DISCUSSED AVAILABILITY OF REHAB AND HOME HEALTH SERVICES, OBSERVED AND VERBALIZED THAT PT FELT TOO WEAK TO GO HOME YESTERDAY. PT DENIES DISCHARGE NEEDS, REPORTS FEELING STRONG ENOUGH TO RETURN HOME AND EXERCISE ON HER OWN. CM CALLED [facility], SPOKE TO DANNY WHO WILL PROCESS ORDER FOR NEBULIZER. CM RECEIVED OXYGEN TESTING, PT DID NOT QUALIFY FOR HOME OXYGEN. CM FAXED ORDER AND SUPPORTING CHART NOTES TO [facility]. CM RECEIVED CALL FROM DANNY OF [facility] WHO INFORMED CM THAT CHART NOTES NOT ADEQUATE FOR INSURANCE TO PAY FOR NEBULIZER, SUGGESTED [facility] WHO WOULD SELL NEBULIZER FOR $31 PLUS TAX. CM SPOKE TO PT IN ROOM AND DR. BURKS VIA PHONE. DR. BURKS INFORMED CM THAT CHART NOTES INDICATING DIAGNOSIS OF ASTHMA SHOULD BE SUFFICIENT, PT ASKED FOR CM TO TRY [facility]. CM CALLED [facility], , SPOKE TO BARON WHO INFORMED CM THAT INSURANCE WILL COVER NEBULIZER AND THEY CAN MAIL ORDER THE MEDICATION, PT WILL NEED ONE MONTH SUPPLY FROM HER PHARMACY TO ALLOW FOR MAIL ORDER PROCESSING FOR FUTURE NEB MEDICATIONS. CM NOTIFIED ANATOMIC PATHOLOGY ASSISTANT NURSE. CM FAXED ORDER FOR NEBULIZER AND MEDICATIONS TO [facility] AT [phone]. [facility] TO ARRANGE NEBULIZER DELVERY TO PT'S ROOM FOR DISCHARGE HOME TODAY. PT WILL NEED TO CLINIC NURSE ONE MONTH OF NEB MEDICATIONS AT HER PHARMACY, [facility] WILL ARRANGE MAIL ORDER DELIVERY FOR REMAINING MONTHS OF NEB MEDS. Alonzo Fagan. CASE MANAGEMENT DCP- Discharge Planning Updated by [id number]: Alonzo Fagan on 07/03/19 12:[address] Patient Name: MARLEEN DIAZ Admission Status: ER Accout number: [id number] Admission Date: 06-30-2019 : 1940 Admission Diagnosis:SHORTNESS OF BREATH Attending: EBER LOPEZ Current LOS: 3 Anticipated DC Date: 07-04-2019 Planned Disposition: Home Primary Insurance: MEDICARE A & B Discharge Planning Comments: CM MET WITH PT IN ROOM TO DISCUSS DISCHARGE PLANNING AND NEEDS. PT REPORTS LIVING AT HOME INDEPENDENTLY WITH HER SPOUSE. PT HAS NO MEDICAL EQUIPMENT AND NO OUTSIDE SERVICES ASSISTING IN THE HOME. CM DISCUSSED AVAILABILITY OF HOME HEALTH, REHAB SERVICES AND MEDICAL EQUIPMENT. PT DENIES DISCHARGE NEEDS, REPORTS HER SPOUSE WILL PICK HER UP FOR DISCHARGE HOME. IMPORTANT MESSAGE FROM MEDICARE PROVIDED AND EXPLAINED. Residential Door Unit Installer: Alonzo Fagan DCPIA - Discharge Planning Initial Assessment Updated by [email or web address]: Alonzo Fagan on 07/03/19 1:08 pm * Is the patient Alert and Oriented? Yes * How many steps to enter\exit or inside your home? NONE * PCP DR. WEAVER * Pharmacy [facility] [address] [facility] - [place] * Preadmission Environment Home with Family * ADLs Independent * Equipment None * Other Equipment NO MEDICAL EQUIPMENT PROVIDER PREFERENCE * List name and contact numbers for known caregivers / representatives who currently or will assist patient after discharge: JEFFERY DIAZ, SPOUSE, * Verbal permission to speak to the caregivers and representatives has been obtained from the patient. N/A * Community resources currently utilized None * Please name any agencies selected above. NONE * Additional services required to return to the preadmission environment? No * Has this patient been hospitalized within the prior 30 days at any hospital? No Coverage Notice Reviewer: [id number] Duong Fagan Notice Issued Date-Time: 07/03/2019 9:00 Notice Type: IM Discharge Notice Notice Delivered To: Patient Relationship to Patient: Pocket Cutter Name: Delivery Method: HAND - Hand Delivered Yola Days: Prior Verbal Notification: Recipient Understood Notice: Yes Recipient Signature: Yes Med Rec Note Co-signed by Attending: Coverage Notice Comment: Reviewer: [email or web address] Duong Fagan Notice Issued Date-Time: 07/04/2019 9:10 Notice Type: Patient Choice Letter Notice Delivered To: Patient Relationship to Patient: Pocket Cutter Name: Delivery Method: HAND - Hand Delivered Yola Days: Prior Verbal Notification: Recipient Understood Notice: Yes Recipient Signature: Yes Med Rec Note Co-signed by Attending: Coverage Notice Comment: 1, [facility] 2. [facility]f DP export: 07/04/19 10:43 am Patient Name: MARLEEN DIAZ Page [id number] at 0843 All edits/amendments must be made on the electronic document DICTATION DATE: 07/05/19 0843 TIE SAWYER: JULIA 07/05/19 0843 RPT#: [id number] DC DATE:07/04/19 STATUS: DIS IN [facility] [address] [place] [address] END OF REPORT
== END 2019-07-04 19:11 | disposition home or self-care (01) | DRG 208 ==
LOC: D.ER 22:43 → D.ICU 06-30 00:36 → D.M2 06-30 00:36 → D.SDCHOLD 07-03 09:28 → D.M2 07-03 09:33
PROVIDERS: Family Medicine; Internal Medicine Interventional Cardiology; ADMIT Internal Medicine Nephrology; ATTEND Internal Medicine Nephrology
PROC: 5A1935Z Respiratory Ventilation, Less than 24 Consecutive Hours (ICD-10-PCS; 2019-06-29)
PROC: 0BH17EZ Insertion of Endotracheal Airway into Trachea, Via Natural or Artificial Opening (ICD-10-PCS; 2019-06-29)
PROC: 5A09457 Assistance with Respiratory Ventilation, 24-96 Consecutive Hours, Continuous Positive Airway Pressure (ICD-10-PCS; 2019-07-01)
PROC: B2151ZZ Fluoroscopy of Left Heart using Low Osmolar Contrast (ICD-10-PCS; 2019-07-02)
PROC: 4A023N7 Measurement of Cardiac Sampling and Pressure, Left Heart, Percutaneous Approach (ICD-10-PCS; 2019-07-02)
PROC: B3121ZZ Fluoroscopy of Left Subclavian Artery using Low Osmolar Contrast (ICD-10-PCS; 2019-07-02)
PROC: B2111ZZ Fluoroscopy of Multiple Coronary Arteries using Low Osmolar Contrast (ICD-10-PCS; principal; 2019-07-02 16:05)
DX: J96.01 Acute respiratory failure with hypoxia (principal); I50.23 Acute on chronic systolic (congestive) heart failure; I21.4 Non-ST elevation (NSTEMI) myocardial infarction; J18.1 Lobar pneumonia, unspecified organism; I25.10 Atherosclerotic heart disease of native coronary artery without angina pectoris; I11.0 Hypertensive heart disease with heart failure; I08.1 Rheumatic disorders of both mitral and tricuspid valves; D75.89 Other specified diseases of blood and blood-forming organs; F32.9 Major depressive disorder, single episode, unspecified; F41.9 Anxiety disorder, unspecified; K21.9 Gastro-esophageal reflux disease without esophagitis; E78.5 Hyperlipidemia, unspecified; I48.91 Unspecified atrial fibrillation; E03.9 Hypothyroidism, unspecified; I25.5 Ischemic cardiomyopathy

== ENCOUNTER 2019-08-09 08:00 | Outpatient (CLI) | payer MEDICARE, BC ==
[2019-06-30 08:36] VITALS: BMI 39.2
[~2019-08-09 08:00] MED LIST changes: +ATROVENT 0.02%2.5 ML UPD; +ENTRESTO 24 MG1 EACH PO; +OMNICEF300 MG PO
== END 2019-08-09 23:59 | disposition home or self-care (01) ==
LOC: D.MAMMO 08:00
PROVIDERS: ATTEND Family Medicine
DX: Z12.31 Encounter for screening mammogram for malignant neoplasm of breast (principal)

== ENCOUNTER → 2019-08-14 09:21 | Outpatient (CLI) | payer MEDICARE, BC ==
[2019-06-30 08:36] VITALS: BMI 39.2
== END | disposition home or self-care (01) ==
LOC: D.RT 09:21
PROVIDERS: ATTEND Internal Medicine Pulmonary Disease
DX: J96.90 Respiratory failure, unspecified, unspecified whether with hypoxia or hypercapnia (principal)

== ENCOUNTER → 2019-10-04 16:46 | Outpatient (CLI) | payer MEDICARE, BC ==
[2019-06-30 08:36] VITALS: BMI 39.2
[2019-10-05 10:20] LABS: CHOL - HDL RATIO 2.7 ratio (2.3-4.1); LDL-HDL RATIO 1.4 ratio (1.5-3.5)
== END | disposition home or self-care (01) ==
LOC: D.LABREF 16:46
PROVIDERS: ATTEND Internal Medicine Interventional Cardiology
DX: I25.10 Atherosclerotic heart disease of native coronary artery without angina pectoris (principal)

== ENCOUNTER → 2020-02-04 09:51 | Outpatient (CLI) | payer MEDICARE, BC ==
[2019-06-30 08:36] VITALS: BMI 39.2
--- NOTE | ~2020-02-04 | EC ---
PATIENT:MARLEEN DIAZ DATE OF SERVICE: 02/04/20 SEX: F MEDICAL RECORD: [id number] DATE OF : [birth year] [facility] AGE OF PATIENT: 79 ADMISSION DATE: 02/04/20 REFERRING PHYSICIAN: INTERPRETING PHYSICIAN: OBDULIA STILL MD ECHOCARDIOGRAM REPORT ECHO CHARGES 4 ECHO COMPLETE Date: 02/04/20 CLINICAL DIAGNOSIS: CHF ECHOCARDIOGRAPHIC MEASUREMENTS (adult normal given) AC root (d.<3.7cm) 2.9 cm LV Septum d (<1.2 cm> 1.4 cm Valve Excursion 1.1 cm LV Septum (systole) 1.5 cm Left Atria (s.<4.0cm> 4.4 cm LVPW d(<1.2cm) 1.3 cm RV (d.<2.3cm) 2.2 cm LVPW (sytole) 1.5 cm LV diastole(<5.6CM) 5.5 cm MV E-F(>70mm/sec) cm LV systole 4.9 cm LVOT Diameter 2.0 cm MV exc.(>10mm) cm Est.ejection fraction (50-75%) % DOPPLER: LVIT cm/sec A 96 cm/sec E 53 cm/sec LA cm/sec RVSP 27.1 mmHg LVOT 95 cm/sec AOP1/2T m/s Asc. Ao 132 cm/sec RVOT 104 cm/sec RA cm/sec PA 98 cm/sec AV Gradient Peak 7.0 mmHg AV Mean 4.2 mmHg AV Area 2.2 cm MV Gradient Peak 4.5 mmHg MV Mean 1.8 mmHg MV Area cm COMMENTS: Practical Nursing Teacher: Nazanin CORNELIO ERICA Dry Cleaning Checker: 1 Dr. Still TAPE# PACS Pericardial Effusion Y DATE OF SERVICE: FINDINGS: 1. Left ventricular chamber size is within normal limits. Left ventricular systolic function is lower limits of normal 45-50%. 2. Left atrium is enlarged at 4.4 cm. Right atrium and right ventricle chamber sizes are within normal limits. 3. Valvular structures have normal structure and motion. 4. Doppler interrogation reveals mild aortic insufficiency, mild mitral regurgitation, mild tricuspid regurgitation, no other valvular insufficiency or ECHOCARDIOGRAM REPORT [id number] MARLEEN DIAZ stenosis. Pulmonary systolic pressure estimated at 27 mmHg. 5. No evidence of small pericardial effusion is present. This is not hemodynamically significant. No evidence of left ventricular thrombus. TRANSINT:[id number] Voice Confirmation ID: [id number] DOCUMENT ID: [id number] OBDULIA STILL MD CC: [id number] DICTATION DATE: 02/04/20 1243 STEEL MELTER: 02/04/20 2221 [facility] [address] [place] [id number]
== END | disposition home or self-care (01) ==
LOC: D.ECHO 09:51
PROVIDERS: ATTEND Family Medicine
DX: I50.9 Heart failure, unspecified (principal)

== ENCOUNTER → 2020-06-11 13:00 | Outpatient (CLI) | payer MEDICARE, BC ==
[2019-06-30 08:36] VITALS: BMI 39.2
== END | disposition home or self-care (01) ==
LOC: D.HCCECHO 13:00
PROVIDERS: ATTEND Internal Medicine Cardiovascular Disease
DX: I25.10 Atherosclerotic heart disease of native coronary artery without angina pectoris (principal)

== ENCOUNTER 2020-07-15 11:40 | Day surgery (SDC) | payer MEDICARE, BC ==
[~2020-07-15] VITALS: Ht 157.5 cm; Wt 90.5 kg
[2020-07-15] MEDS ORDERED: BUMEX2 MG PO (12:06)
[2020-07-15] MEDS ORDERED: LEXAPRO20 MG PO (12:06)
[2020-07-15] MEDS ORDERED: K-TAB10 MEQ PO (12:07)
[2020-07-15] MEDS ORDERED: ELIQUIS5 MG PO (12:08)
[2020-07-15 12:18] VITALS: BP 144/70; Ht 157.5 cm; Wt 90.5 kg
[2020-07-15 12:31] LABS: HEMATOCRIT 41.3 % (36.0-48.0); HEMOGLOBIN 13.7 g/dL (12-16); MCH 30.6 pg (26.0-34.0); MCHC 33.2 g/dL (31.0-37.0); MCV 92.4 fL (80.0-100.0); MEAN PLATELET VOLUME 10.1 fL (7.4-10.4); RBC 4.47 10x6/uL (4.00-5.40); RDW 13.2 % (11.5-14.5); WBC 9.3 10x3/uL (4.8-10.8)
[2020-07-15 12:38] LABS: CALCIUM 9.6 mg/dL (8.5-10.1); CARBON DIOXIDE 29.2 mmol/L (21.0-32.0); CREATININE - SERUM 1.2 mg/dL (0.6-1.3); POTASSIUM - SERUM 4.2 mmol/L (3.5-5.1)
[2020-07-15 12:40] LABS: INR 1.03 (0.85-1.17); PROTIME 13.4 SECONDS (11.6-15.0)
[2020-07-15 12:41] LABS: APTT 31.9 SECONDS (22.8-39.4)
--- NOTE | 2020-07-15 15:35 | NUR ---
DR. PHIPPS IN TO TALK WITH PT AND HER RE: RESCEDULING PROCEDURE D/T SURGEON SCHEDULING. PIV D/C'D INTACT AND DSG APPLIED. PT UP TO GET DRESSED.
--- NOTE | 2020-07-15 15:40 | NUR ---
PRE-PROCEDURE SHEET FOR 07/17/20 REVIEWED WITH PT AND . QUESTIONS ANSWERED.
--- NOTE | 2020-07-15 15:45 | NUR ---
PT DISCHARGED TO PRIVATE VEHICLE WITH .
== END 2020-07-15 15:45 | disposition home or self-care (01) ==
LOC: D.CATH 11:40
PROVIDERS: ATTEND Internal Medicine Interventional Cardiology
DX: I49.5 Sick sinus syndrome (principal)

== ENCOUNTER 2020-07-17 11:45 | Day surgery (SDC) | payer MEDICARE, BC ==
[~2020-07-17] VITALS: Ht 157.5 cm; Wt 87.8 kg
--- NOTE | ~2020-07-17 | HEMODYNAMI ---
PATIENT:MARLEEN DIAZ MEDICAL RECORD: [id number] : 42 LOCATION:[facility] ADMISSION DATE: 07/17/20 Generatedon:07/17/202015:09 Patient name: MARLEEN DIAZ Patient #: [id number] : 1940 Date of study: 07/17/2020 Page: Of Hemodynamic Procedure Report Patient Data Patient Demographics Procedure consent was obtained First Name: MARLEEN Gender: Female Last Name: EMILY : 1940 [facility] Initial: K Age: 79 year(s) Patient #: [id number] Race: SSN: [id number] Additional ID: [id number] Contact details [address]: [address] [place] [address] State: [place] City: [place] Zip code: [address] Past Medical History History of disease Date Diagnosis Comments CAD Allergies Allergen Reaction Date Comments Reported Other allergy 02/18/2016 Troy Inhibitors, Codeine, Cortisone Other allergy 04/28/2018 TROY Inhibitors, Codeine, Cortisone. Other allergy 07/17/2020 see chart Admission Admission Data Admission Date: 07/17/2020 Admission Time: 11:45 Procedure Procedure Types Cath Procedure Diagnostic Procedure PPM/ICD PPM Dual Implant Sedation Charges Moderate Sedation up to 30 minutes Procedure Description Procedure Date Procedure Date: 07/17/2020 Procedure Start Time: 14:41 Procedure Staff Name Function Darren Saravia MD Performing Physician Femi Jordan MD Assisting physician Cleopatra Claire RT Monitor Rosana Goldman RT Scrub Rodríguez Buckley RN Nurse Yasmany Gannon RN Sole Leveling Machine Operator Procedure Data Cath Procedure Fluoroscopy Diagnostic fluoroscopy Total fluoroscopy Time: 1.8 time: 1.8 min min Diagnostic fluoroscopy Total fluoroscopy dose: dose: 84.51 mGy 84.51 mGy Estimated blood loss: 10 ml Procedure Complications No complications Procedure Medications Medication Administration Route Dosage 0.9% NaCl I.V. 100 ml/hr Oxygen etCO2 Nasal cannula 2 l/min Lidocaine 2% added to field 20 Ancef (1Gm/50ml NS) I.V.P.B 1 g Ancef Irrigation 1 g (1gm/500ml NS) Versed I.V. 2 mg Fentanyl I.V. 100 mcg Fentanyl I.V. 50 mcg Fentanyl I.V. 50 mcg Hemodynamics Rest Heart Rate: 64 (bpm) Snapshots Pre Cath Intra NCS Post Cath Vital Signs Time Heart Resp SPO2 etCO2 NIBP (mmHg) Rhythm Pain Sedation Rate (ipm) (%) (mmHg) Status Level (bpm) 14:27:14 62 15 97 0 184/83(117) NSR 0 (11) 10(A) , No pain 14:32:56 62 19 97 0 165/65(123) NSR 0 (11) 10(A) , No pain 14:37:22 59 18 95 0 139/63(106) NSR 0 (11) 10(A) , No pain 14:41:49 59 17 94 0 128/54(98) NSR 0 (11) 10(A) , No pain 14:47:02 66 17 91 0 141/96(111) NSR 0 (11) 10(A) , No pain 14:51:03 111 17 95 0 131/95(106) NSR 0 (11) 10(A) , No pain 14:55:17 56 16 92 0 124/57(103) NSR 0 (11) 10(A) , No pain 14:59:36 89 10 92 0 130/57(91) NSR 0 (11) 10(A) , No pain 15:03:54 64 8 92 0 128/56(91) NSR 0 (11) 10(A) , No pain 15:08:16 60 5 93 0 131/54(89) NSR 0 (11) 10(A) , No pain Medications Time Medication Route Dose Verified Delivered Reason Notes Effectiv eness by by 14:33:45 0.9% NaCl I.V. 100 Rodríguez Rodríguez Per ml/hr Ina Buckley physician RN RN 14:33:54 Oxygen etCO2 2 Rodríguez Rodríguez for low 02 Nasal l/min Ina Buckley sats cannula RN RN 14:35:03 Lidocaine added 20ml Rodríguez Rodríguez for local 2% to vial Ina Buckley anesthetic field (x2) RN RN 14:35:15 Ancef I.V.P.B 1 g Rodríguez Rodríguez Per (1Gm/50ml Lorigan Lorigan physician NS) RN RN 14:35:41 Ancef Topical 1 g Rodríguez Rodríguez used for Irrigation (added Lorigan Lorigan procedure (1gm/500ml to RN RN NS) field) 14:35:56 Versed I.V. 2 mg Rodríguez Rodríguez for Lorigan Lorigan sedation RN RN 14:36:04 Fentanyl I.V. 100 Rodríguez Rodríguez for mcg Lorigan Lorigan sedation RN RN 14:46:04 Fentanyl I.V. 50 Rodríguez Rodríguez for mcg Lorigan Lorigan sedation RN RN 14:51:00 Fentanyl I.V. 50 Rodríguez Rodríguez for mcg Lorigan Lorigan sedation RN braille and talking books clerk Log Time Note 13:58:34 Informed consent obtained and on chart 14:01:07 Procedure Status PPM/ Gen Change/ Lead Revision/ Temp. 14:01:33 Rosana Goldman RT(R) sent for patient. Start room use. 14:01:34 Time tracking: Regular hours (M-F 7:00 - 5:00) 14:01:36 Plan of Care:Hemodynamics will remain stable., Cardiac rhythm will remain stable., Comfort level will be maintained., Respiratory function will remain adequate., Patient/ family verbilizes understanding of procedure., Procedure tolerated without complication., Recovers from procedure without complications.. 14:02:05 H&P Date Dictated: 07/09/2020 Within 30 days and on chart., H&P Addendum completed by physician on day of procedure. (MUST COMPLETE FOR ALL OUTPATIENTS). 14:11:41 Warm blankets applied, and samir hugger turned on for patient comfort. 14:11:42 Correct patient and procedure confirmed by team. 14:11:42 ECG and BP/O2 sat monitors applied to patient. 14:19:31 Vital chart was started 14:19:34 Baseline sample Acquired. 14:19:35 Full Disclosure recording started 14:19:38 Family in waiting room. 14:19:40 Patient NPO since Midnight. 14:19:54 Patient allergic to Other allergysee chart 14:19:58 Is the patient allergic to Iodine/contrast media? No. 14:19:59 Was the patient premedicated? Yes 14:20:30 Is patient on blood thinner?Yes 14:20:34 ACC The patient was administered the following blood thiners within the last 24 hours: Eliquis 14:20:55 Patient diabetic? No. 14:21:00 Snore? Yes 14:21:01 Sleep apnea? No 14:21:15 Patient pain scale 0/10 ?. 14:21:26 IV patent on arrival in left forearm with 0.9% NaCl at [facility]. 14:21:30 Lab results completed and on chart. 14:21:43 Left neck area was prepped with chlora-prep and draped in sterile fashion 14:21:46 Sharps counted by scrub and verified by R.N. 14:29:14 Physician arrived 14:: --------ALL STOP TIME OUT------ :: Final Timeout: patient, procedure, and site verified with staff and physician. All members of the team are in agreement. 14:29:33 Left chest site verified by team. 14:29:38 Fire Safety Assessment: A--An alcohol-based skin anteseptic being used preoperatively., C--Open oxygen or nitrous oxide is being used., D--An ESU, laser, or fiber-optic light is being used. 14:29:42 Physical assessment completed. ASA score P 2 - A patient with mild systemic disease as per Darren Saravia MD. 14:29:47 Sedation plan: IV Moderate Sedation Medication:Versed, Fentanyl 14:30:19 Use device set RAHEEL PPM 14:30:29 Medtronic claim service representative divine joseph present for procedure. 14:31:50 Pre sharps counted by scrub and verified by RN: Sutures: 7; Sponges: 5; Stick needles: 2; Skin needles: 2; Blade: 1; Cautery: 1 14:33:34 Grounding pad site Left thigh. 14:33:40 2-0 Ticron Multipack ([id number]) opened to sterile field. 14:33:41 3-0 Vicryl Single Pack [id number] opened to sterile field. 14:33:43 5-0 Monocryl PS2 [id number] opened to sterile field. 14:33:44 Cautery Tip Authorization Nurse opened to sterile field. 14:33:45 0.9% NaCl 100 ml/hr I.V. was administered by Rodríguez Buckley RN; Per physician; Verbal order read back and verified. 14:33:46 Cautery Pushbutton Pencil opened to sterile field. 14:33:47 Mepilex Dressing ([id number]) opened to sterile field. 14:33:50 Immobilizer Large opened to sterile field. 14:33:54 Oxygen 2 l/min etCO2 Nasal cannula was administered by Rodríguez Buckley RN; for low 02 sats; Verbal order read back and verified. 14:35:03 Lidocaine 2% 20ml vial (x2) added to field was administered by Rodríguez Buckley RN; for local anesthetic; Verbal order read back and verified. 14:35:15 Ancef (1Gm/50ml NS) 1 g I.V.P.B was administered by Rodríguez Buckley RN; Per physician; Verbal order read back and verified. 14:35:[address] Generator [id number] opened to sterile field. 14:35:41 Ancef Irrigation (1gm/500ml NS) 1 g Topical (added to field) was administered by Rodríguez Buckley RN; used for procedure; Verbal order read back and verified. 14:35:56 Versed 2 mg I.V. was administered by Rodríguez Buckley RN; for sedation; Verbal order read back and verified. 14:36:04 Fentanyl 100 mcg I.V. was administered by Rodríguez Buckley RN; for sedation; Verbal order read back and verified. 14:36:07 Medtronic 4074-52 PPM Lead opened to sterile field. 14:36:50 Medtronic 4574-45 PPM Lead opened to sterile field. 14:41:56 Lidocaine 2% was administered to left subclavicular area by Femi Jordan MD . 14:41:58 Incision made to left subclavicular area. 14:45:14 Generator pocket made/opened. 14:46:04 Fentanyl 50 mcg I.V. was administered by Rodríguez Buckley RN; for sedation; Verbal order read back and verified. 14:51:00 Fentanyl 50 mcg I.V. was administered by Rodríguez Buckley RN; for sedation; Verbal order read back and verified. 14:51:14 Left subclavian vein accessed with 7Fr Peel Away Sheath. 14:51:23 Left subclavian vein accessed with 7Fr Peel Away Sheath. 14:51:26 Ventricular lead inserted and advanced. 14:51:29 Atrial lead inserted and advanced. 14:51:31 Peel-a-way sheath was split and removed. 14:53:15 Ventricular lead tested. 14:53:18 Atrial lead tested. 14:55:29 PPM Dual was inserted subcutaneously to left chest. 14:55:32 Device pocket was irrigated with Ancef. 14:55:51 Ventricular lead attachment was completed with 2-0 ticron. 14:55:54 Atrial lead attachment was completed with 2-0 ticron. 14:56:04 Subcutaneous closure was completed with 3-0 vicryl. 14:56:11 Skin closure was completed with 5-0 monocryl. 14:56:16 Generator was sutured in place with 2-0 ticron. 14:57:42 Parameters-- Generator: Mode: DDIR. Lower Rate: 60bpm. Upper Rate: 120bpm. 14:59:51 Parameters--Ventricular P/R Wave: 18.2mV. Current: .1mA; Threshold: .3V; Impedence: 1516OHMS. 15:01:13 Parameters--Atrial P/R Wave: 3.1mV. Current: .6mA; Threshold: .4V; Impedence: 655OHMS. 15:01:26 Lt Chest incision was dressed with Mepilex dressing. 15:01:34 Procedure ended.(Physican Out) 15:02:36 Fluoroscopy time 01.80 minutes. 15:02:48 Fluoroscopy dose: 84.51 mGy 15:02:48 Flurop Dose total: 84.51 15:04:14 Dose Area Product 922.67 mGy/cm. 15:04:19 Sharps counted by scrub and verified by R.N. 15:04:22 Insertion/operative site no bleeding no hematoma. 15:05:15 Post Procedure Pulses reassessed and unchanged 15:05:21 Post-procedure physical assessment completed. ASA score P 2 - A patient with mild systemic disease as per Darren Saravia MD. 15:05:54 Post procedure rhythm: paced 15:05:58 Estimated blood loss: 10 ml 15:06:19 Post procedure instruction explained to patient.Patient verbalizes understanding. 15:06:41 Patient needs reinforcement of post procedure teaching. 15:07:00 Procedure type changed to Cath procedure, Diagnostic procedure, PPM/ICD, PPM Dual Implant, Sedation Charges, Moderate Sedation up to 30 minutes 15:07:17 Procedure and supply charges have been captured, reviewed, submitted and are correct. 15:07:35 Procedure Complication : No complications 15:07:38 Vital chart was stopped 15:07:42 Report given to Pre/Post Procedure Room. 15:07:47 Patient transfered to Pre/Post Procedure Room with Stretcher. 15:08:00 End room use (Document Last) 15:08:30 End room use (Document Last) 15:09:03 End room use (Document Last) Device Usage Item Name Manufacture Quantity Catalog Hospital Part Current Minima l Lot# / Number Charge Number Stock Stock Serial# Code 2-0 Ticron Ethicon 8 [id number] 023600 81189 [id number] 5 Multipack ([id number]) 3-0 Vicryl Ethicon 1 [id number] 242153 022743 5 Single Pack [id number] 5-0 Monocryl Ethicon 1 [id number] 290067 817471 525168 5 PS2 Y495G Cautery Tip Microtek 1 [id number] 762552 541326 553460 5 Authorization [employer] Cautery Microtek 1 [id number] 123750 81246 918086 5 [employer] Pencil Mepilex Cardinal 1 114211 016291 806997 442641 5 [facility] ([id number]) Immobilizer Cardinal 1 [id number] 092337 832036 5 [facility] Medtronic Medtronic 1 W1DR01 313726 [id number] 711666 [address] [id number] Generator EXP. W1DR01 11-10-2021 Medtronic Medtronic 1 4074-52 347550 682638 975322 5 4074-52 PPM [id number] Lead EXP. Medtronic Medtronic 1 4574-45 [id number] 141867 556068 5 4574-45 PPM [id number] Lead EXP. 02/21/2022 Signature Audit Clyo Stage Time Signature Unsigned Intra-Procedure 07/17/2020 Cleopatra Claire 3:08:30 PM RT(R) Intra-Procedure 07/17/2020 Rodríguez 3:09:03 PM Lorigan RN Intra-Procedure 07/17/2020 Darren Banks 3:09:26 PM Silvestre RAMÍREZ [facility] [address] [facility] [place] [address]
--- NOTE | ~2020-07-17 | OP ---
PATIENT NAME: MARLEEN DIAZ MEDICAL RECORD: [id number] :42 LOCATION:D.CAT ADMISSION DATE: SURGEON: KHUSHI PICKERING MD DATE OF OPERATION: 07/17/2020 PREOPERATIVE DIAGNOSIS: Sick sinus syndrome with pauses. POSTOPERATIVE DIAGNOSIS: Sick sinus syndrome with pauses. PROCEDURE: 1. Left subclavian vein dual lead pacemaker placement. 2. Fluoroscopic interpretation. SURGEON: Khushi Pickering MD CO-SURGEON: Darren Yun MD REPORT OF PROCEDURE: The patient's left chest was prepped and draped in sterile fashion. A 20 mL of 1% lidocaine with epinephrine was infused into the surrounding tissues. A transverse incision was made on the left superior chest and a subcutaneous pouch was made over the pectoral fascia. Needle was used to cannulate the left subclavian vein times 2 and guidewires were advanced with ease. Fluoro was used to note that the wires were in good position in the venous system. The dilator trocar devices were placed over the wires and the wires and dilators were removed. The leads were then advanced through the trocars until they rested in the superior vena cava. At this point, Dr. Yun positioned the leads appropriately in the atrium and ventricle. Once the leads were noted to be functioning appropriately, then they were sutured into place with 2-0 TiCron. The leads were placed in subcutaneous pouch and sutured to the pectoral fascia with a single interrupted 2-0 TiCron. The wound bed was irrigated out with antibiotic solution. The subcutaneous tissues were reapproximated with interrupted 3-0 Vicryl and the skin was closed with running subcutaneous 5-0 Monocryl. COMPLICATIONS: None. CONDITION: Stable. ANESTHESIA: Local MAC. BLOOD LOSS: Minimal. TRANSINT:[id number] Voice Confirmation ID: [id number] DOCUMENT ID: [id number] KHUSHI PICKERING MD CC: [id number] DICTATION DATE: 07/17/20 1506 SHEET ROCK TAPER: 07/17/202112 [facility] 07/17/[address] [address]
[~2020-07-17 11:45] MED LIST changes: +BUMEX2 MG PO; +ELIQUIS5 MG PO; +K-TAB10 MEQ PO; +LEXAPRO20 MG PO
[2020-07-17 12:31] VITALS: BP 163/56; Ht 157.5 cm; Wt 87.8 kg
--- NOTE | 2020-07-17 15:25 | NUR ---
PT REC'D TO ROOM 4 VIA STRETCHER FROM TIMING INSPECTOR. MONITORS ESTAB. AT BS. SEE CAP COVERER. ALARMS ON AND C/L IN REACH.
--- NOTE | 2020-07-17 15:40 | NUR ---
CM - PACED AT 61, OWN BEATS NOTED AT TIMES, NO ECTOPY. VSS. L CHEST SITE C/D/I. PT GIVEN SANDWICH AND SPRITE PER REQUEST. ALARMS ON AND C/L IN REACH.
--- NOTE | 2020-07-17 16:10 | NUR ---
VSS. CM - PACED. NO ECTOPY NOTED. L CHEST PPM DSG C/D/I, NO DRAINAGE OR SWELLING. PIV D/C'D INTACT, DSG APPLIED. PT ASSISTED WITH GETTING DRESSED, THEN TO THE BR INDEPENDENTLY.
--- NOTE | 2020-07-17 16:29 | NUR ---
ALL DISCHARGE INSTRUCTIONS REVIEWED WITH PT AND - INCLUDING RESTRICTIONS, MEDS AND F/U APPT. BOTH VERBALIZE UNDERSTANDING.
--- NOTE | 2020-07-17 16:35 | NUR ---
PT D/C'D VIA WC TO PRIVATE VEHICLE WITH ALL PAPERWORK AND BELONGINGS.
--- NOTE | 2020-07-18 08:19 | OP ---
PATIENT NAME: MARLEEN DIAZ MEDICAL RECORD: [id number] :42 LOCATION:D.CAT ADMISSION DATE: SURGEON: ROSA PHIPPS MD DATE OF OPERATION: 07/17/2020 PROCEDURE: Lead portion of permanent pacemaker placement. DESCRIPTION OF PROCEDURE: After left subclavian was cannulated via modified Seldinger technique via Dr. Jordan, first, under fluoroscopic guidance, I placed the RV lead in the RV apex without difficulty. After R waves and thresholds were obtained, the right atrial lead was placed in the right atrial appendage without difficulty. After adequate thresholds and P waves were again, obtained, the leads were attached to appropriate poles of the generator and pocket was closed via Dr. Jordan. IMPRESSION: Successful lead portion of a permanent pacer placement of Marleen Diaz. ESTIMATED BLOOD LOSS: Minimal. COMPLICATIONS: None. DISPOSITION: To the recovery room in stable condition. TRANSINT:[id number] Voice Confirmation ID: [id number] DOCUMENT ID: [id number] ROSA PHIPPS MD at 0819 CC: [id number] DICTATION DATE: 07/17/20 1503 AIRCRAFT ELECTRICIAN: 07/17/20 2119 [facility] 07/17/20 [place] [place] [address]
== END 2020-07-17 16:35 | disposition home or self-care (01) ==
LOC: D.CATH 11:45
PROVIDERS: ATTEND Internal Medicine Interventional Cardiology
DX: I49.5 Sick sinus syndrome (principal); I25.119 Atherosclerotic heart disease of native coronary artery with unspecified angina pectoris; I48.0 Paroxysmal atrial fibrillation; I42.9 Cardiomyopathy, unspecified

== ENCOUNTER → 2020-08-18 11:28 | Outpatient (CLI) | payer MEDICARE, BC ==
[2020-07-17 12:31] VITALS: BMI 35.4
== END | disposition home or self-care (01) ==
LOC: D.RAD 11:28
PROVIDERS: ATTEND Nurse Practitioner Adult Health
DX: Z45.018 Encounter for adjustment and management of other part of cardiac pacemaker (principal)

== ENCOUNTER 2020-09-02 10:44 | Day surgery (SDC) | payer MEDICARE, BC ==
[~2020-09-02] VITALS: Ht 157.5 cm; Wt 89.2 kg
--- NOTE | ~2020-09-02 | HEMODYNAMI ---
PATIENT:MARLEEN DIAZ MEDICAL RECORD: [id number] : 42 LOCATION:[facility] ADMISSION DATE: 09/02/20 Generatedon:09/02/202015:07 Patient name: MARLEEN DIAZ Patient #: [id number] : 1940 Date of study: 09/02/2020 Page: Of Hemodynamic Procedure Report Patient Data Patient Demographics Procedure consent was obtained First Name: MARLEEN Gender: Female Last Name: EMILY : 1940 Middle Initial: K Age: 79 year(s) Patient #: [id number] Race: SSN: [id number] Additional ID: [id number] Contact details [address]: [address] [place] [address] State: [place] City: [place] Zip code: [address] Past Medical History History of disease Date Diagnosis Comments CAD Allergies Allergen Reaction Date Comments Reported Other allergy 02/18/2016 Troy Inhibitors, Codeine, Cortisone Other allergy 04/28/2018 TROY Inhibitors, Codeine, Cortisone. Other allergy 07/17/2020 see chart Other allergy 09/02/2020 troy inhibitors, lisinopril, codeine edarbyclor, cortisone Admission Admission Data Admission Date: 09/02/2020 Admission Time: 10:44 Arrival Date: 09/02/2020 Arrival Time: 0:00 Admit Source: Other Insurance Payor: Medicare [facility] #: [id number] Height (in.): 62 BSA: 1.9 (m2) Height (cm.): 157.48 BMI: 35.96 (kg/m2) Weight (lbs.): 196.61 Weight (kg.): 89.18 Lab Results Lab Result Date: 09/02/2020 Lab Result Time: 0:00 Biochemistry Name Units Result Min Max BUN mg/dl 18 --(---*)-- 7 18 Creatinine mg/dl 1.1 --(--*-)-- 0.6 1.3 CBC Name Units Result Min Max Hemoglobin g/dl 14.5 --(*---)-- 13.5 17.5 Procedure Procedure Types Cath Procedure Diagnostic Procedure PPM/ICD Permanent Pacer Lead Repos. Sedation Charges Moderate Sedation up to 15 minutes Procedure Description Procedure Date Procedure Date: 09/02/2020 Procedure Start Time: 14:44 Procedure End Time: 15:06 Procedure Staff Name Function Darren Saravia MD Performing Physician Albertina Roberson RT Monitor Katarzyna Watson RT Scrub Rosana Goldman RT Scrub Bindu Muñiz, GONZALEZ Nurse Femi Jordan MD Assisting physician Procedure Data Cath Procedure Fluoroscopy Diagnostic fluoroscopy Total fluoroscopy Time: 2.7 time: 2.7 min min Diagnostic fluoroscopy Total fluoroscopy dose: 229 dose: 229 mGy mGy Estimated blood loss: 10 ml Procedure Complications No complications Procedure Medications Medication Administration Route Dosage Ancef (1Gm/50ml NS) I.V.P.B 1 g 0.9% NaCl I.V. 100 ml/hr Lidocaine 1% added to field 20 Lidocaine 1% added to field 20 Fentanyl I.V. 25 mcg Versed I.V. 0.5 mg Hemodynamics Rest BSA: 1.9 (m2) HGB: 14.5 (g/dl) O2 Consumption: Estimated: 258.4 (ml/min) O2 Cons umption indexed: Estimated:136 (ml/min/m) Pre Cath Intra NCS Post Cath Vital Signs Time Heart Resp SPO2 etCO2 NIBP (mmHg) Rhythm Pain Sedation Rate (ipm) (%) (mmHg) Status Level (bpm) 14:21:38 105 10 95 0 137/75(85) NSR 0 (11) 10(A) , No pain 14:26:21 98 17 92 0 125/75(81) NSR 0 (11) 10(A) , No pain 14:31:02 95 11 93 0 119/69(96) NSR 0 (11) 10(A) , No pain 14:35:38 96 6 95 0 138/68(98) NSR 0 (11) 10(A) , No pain 14:40:21 110 14 94 0 137/74(120) NSR 0 (11) 10(A) , No pain 14:44:27 81 14 93 0 133/79(106) NSR 0 (11) 10(A) , No pain 14:49:01 105 12 92 0 150/92(101) NSR 0 (11) 10(A) , No pain 14:53:05 87 13 90 0 125/87(102) NSR 0 (11) 10(A) , No pain 14:57:09 100 11 90 0 126/75(96) NSR 0 (11) 10(A) , No pain 15:01:10 94 13 91 0 132/78(89) NSR 0 (11) 10(A) , No pain 15:05:10 0 No Cuff NSR 0 (11) 10(A) , No pain Medications Time Medication Route Dose Verified Delivered Reason Notes Effectiv eness by by 14:31:58 Ancef I.V.P.B 1 g Bindu Bindu Per (1Gm/50ml Antonino Muñiz, physician NS) RN RN 14:32:16 0.9% NaCl I.V. 100 Bindu Bindu Per ml/hr Antonino Muñiz, physician RN RN 14:32:33 Lidocaine added 20ml Bindu Bindu for local 1% to vial Antonino Muñiz, anesthetic field RN RN 14:32:42 Lidocaine added 20ml Bindu Bindu for local 1% to vial Antonino Muñiz, anesthetic field RN RN 14:44:17 Fentanyl I.V. 25 Bindu Bindu for mcg Antonino Muñiz, sedation RN RN 14:44:26 Versed I.V. 0.5 Bindu Bindu for mg Antonino Muñiz, sedation RN show card letterer Log Time Note 14:03:08 Informed consent obtained and on chart 14:03:13 Diagnostic Cath Status : Elective 14:04:01 Lab Result : Hemoglobin 14.5 g/dl 14:04:01 Lab Result : Creatinine 1.1 mg/dl 14:04:01 Lab Result : BUN 18 mg/dl 14:04:09 Rosana Goldman RT(R) sent for patient. Start room use. 14:04:10 Time tracking: Regular hours (M-F 7:00 - 5:00) 14:04:13 Plan of Care:Hemodynamics will remain stable., Cardiac rhythm will remain stable., Comfort level will be maintained., Respiratory function will remain adequate., Patient/ family verbilizes understanding of procedure., Procedure tolerated without complication., Recovers from procedure without complications.. 14:08:30 Admit Source: Other 14:08:37 Procedure Status PPM/ Gen Change/ Lead Revision/ Temp. 14:08:50 Patient received from Pre/Post Procedure Room to CCL 2 Alert and oriented. Tansferred to table in Supine position. 14:08:53 Warm blankets applied, and samir hugger turned on for patient comfort. 14:08:53 Correct patient and procedure confirmed by team. 14:08:54 ECG and BP/O2 sat monitors applied to patient. 14:09:19 H&P Date Dictated: 08/18/2020 Within 30 days and on chart.. 14:09:20 Pre-procedure instructions explained to patient. 14:09:20 Pre-op teaching completed and patient verbalized understanding. 14:09:22 Family in patients room. 14:09:25 Patient NPO since Midnight. 14:10:00 Patient allergic to Other allergyace inhibitors, lisinopril, codeine edarbyclor, cortisone 14:10:06 Is the patient allergic to Iodine/contrast media? No. 14:10:07 Was the patient premedicated? No 14:10:11 Lab results completed and on chart. 14:10:14 Stress Test: no; N/A ? 14:10:20 Left chest area was prepped with chlora-prep and draped in sterile fashion 14:10:22 Alarms reviewed by R. N. 14:10:22 Sharps counted by scrub and verified by R.N. 14:10:41 Is patient on blood thinner?Yes 14:10:44 ACC The patient was administered the following blood thiners within the last 24 hours: Eliquis 14:10:46 Patient diabetic? No. 14:10:49 If diabetic: On Metformin? N/A 14:10:54 Patient not . Patient is over age 55. 14:10:55 ----Pre-sedation anethsthesia assessment.---- 14:10:58 Previous problem with sedation/anesthesia? No ? 14:10:59 Snore? Yes 14:11:18 Sleep apnea? No 14:11:19 Deviated septum? No 14:11:20 Opens mouth fully? Yes 14:11:22 Sticks out tongue? Yes 14:11:25 Airway obstruction? No ? 14:11:27 Dentures? No ? 14:11:32 Patient pain scale 0/10 ?. 14:11:41 IV patent on arrival in left antecubital with 0.9% NaCl at [facility]. 14:11:57 Use device set RAHEEL PPM 14:11:59 2-0 Ticron Multipack ([id number]) opened to sterile field. 14:12:00 3-0 Vicryl Single Pack [id number] opened to sterile field. 14:12:01 5-0 Monocryl PS2 [id number] opened to sterile field. 14:12:01 Cautery Tip Senior [employer] D[employer] opened to sterile field. 14:12:02 Cautery Pushbutton Pencil opened to sterile field. 14:12:02 Mepilex Dressing ([id number]) opened to sterile field. 14:14:48 Full Disclosure recording started 14:14:51 Vital chart was started 14:14:55 Rhythm: paced, atrial fibrillation 14:17:19 [employer] small business representative MIGUEL STEVENSOE present for procedure. 14:31:58 Ancef (1Gm/50ml NS) 1 g I.V.P.B was administered by Bindu Muñiz RN; Per physician; Verbal order read back and verified. 14:32:16 0.9% NaCl 100 ml/hr I.V. was administered by Bindu Muñiz RN; Per physician; Verbal order read back and verified. 14:32:33 Lidocaine 1% 20ml vial added to field was administered by Bindu Muñiz RN; for local anesthetic; Verbal order read back and verified. 14:32:42 Lidocaine 1% 20ml vial added to field was administered by Bindu Muñiz RN; for local anesthetic; Verbal order read back and verified. 14:41:01 --------ALL STOP TIME OUT------ 14:41:01 Final Timeout: patient, procedure, and site verified with staff and physician. All members of the team are in agreement. 14:41:04 Left chest site verified by team. 14:41:07 Fire Safety Assessment: A--An alcohol-based skin anteseptic being used preoperatively., C--Open oxygen or nitrous oxide is being used., D--An ESU, laser, or fiber-optic light is being used. 14:41:18 Physical assessment completed. ASA score P 2 - A patient with mild systemic disease as per Darren Saravia MD. 14:41:24 Sedation plan: IV Moderate Sedation Medication:Versed, Fentanyl 14:41:37 Procedure started. 14:43:47 Pre sharps counted by scrub and verified by RN: Sutures: 7; Sponges: 5; Stick needles: 2; Skin needles: 2; Blade: 1; Cautery: 1 14:43:53 Grounding pad site Left thigh. 14:43:55 Grounding pad site free from injury. 14:44:17 Fentanyl 25 mcg I.V. was administered by Bindu Muñiz RN; for sedation; Verbal order read back and verified. 14:44:26 Versed 0.5 mg I.V. was administered by Bindu Muñiz RN; for sedation; Verbal order read back and verified. 14:44:39 Lidocaine 1% was administered to left subclavicular area by Femi Jordan MD . 14:44:43 Incision made to left subclavicular area. 14:48:15 Atrial lead dislodged. 14:51:00 Atrial lead repositioned. 14:53:11 Atrial lead tested. 14:53:55 Device pocket was irrigated with Ancef. 14:54:05 Atrial lead attachment was completed with 2-0 ticron. 14:57:54 Subcutaneous closure was completed with 3-0 vicryl. 14:58:10 Skin closure was completed with 5-0 monocryl. 14:58:51 Fluoroscopy time 02.70 minutes. 14:58:54 Fluoroscopy dose: 229 mGy 14:58:54 Flurop Dose total: 229 14:58:58 Dose Area Product 99146 mGy/cm. 14:59:00 Lt Chest incision was dressed with Mepilex dressing. 14:59:01 Sharps counted by scrub and verified by R.N. 15:00:41 Post sharps counted by scrub and verified by RN: Sutures: 3; Sponges: 5; Stick needles: 2; Skin needles: 2; Blade: 1; Cautery: 1 15:00:47 Procedure ended.(Physican Out) 15:01:12 Post Chest area:stable, soft, clean and dry 15:01:20 Post-procedure physical assessment completed. ASA score P 2 - A patient with mild systemic disease as per Darren Saravia MD. 15:01:28 Post procedure rhythm: sinus tachycardia, paced 15:01:33 Estimated blood loss: 10 ml 15:01:34 Post procedure instruction explained to patient.Patient verbalizes understanding. 15:01:36 Patient needs reinforcement of post procedure teaching. 15:02:01 Procedure type changed to Cath procedure, Diagnostic procedure, PPM/ICD, Permanent Pacer Lead Repos., Sedation Charges, Moderate Sedation up to 15 minutes 15:03:03 Arrival Date: 09/02/2020 12:00:00 AM 15:03:42 Insurance Payor : Medicare 15:04:31 Immobilizer Extra Large opened to sterile field. 15:04:51 Procedure and supply charges have been captured, reviewed, submitted and are correct. 15:04:54 Procedure Complication : No complications 15:04:58 Operative report dictated upon procedure completion. 15:04:59 See physician's report for complete and final results. 15:05:00 Report given to Pre/Post Procedure Room. 15:05:03 Patient transfered to Pre/Post Procedure Room with Stretcher. 15:05:30 Patient Height : 62 inches 15:05:34 Patient Weight : 196.61 lbs 15:06:06 Vital chart was stopped 15:06:08 Procedure ended. 15:06:08 Full Disclosure recording stopped 15:06:22 End room use (Document Last) 15:06:37 End room use (Document Last) 15:07:02 End room use (Document Last) Device Usage Item Name Manufacture Quantity Catalog Hospital Part Current Minimal Lot# / Number Charge Number Stock Stock Serial# Code 2-0 Ticron Ethicon 8 [id number] [id number] 5 Multipack ([id number]) 3-0 Vicryl Ethicon 1 [id number] 543997 553268 5 Single Pack [id number] 5-0 Monocryl Ethicon 1 [id number] [id number] 207918 5 PS2 Y495G Cautery Tip Microtek 1 [id number] 006162 [id number] 5 Senior [employer] Cautery Microtek 1 [id number] 49745 195500 5 Push[employer] Pencil Mepilex Cardinal 1 [id number] 694675 129825 937058 5 [facility] ([id number]) Immobilizer Cardinal 1 [id number] 5 Extra Large Health Signature Audit [place] Stage Time Signature Unsigned Intra-Procedure 09/02/2020 Albertina Roberson 3:06:37 PM RT(R) Intra-Procedure 09/02/2020 Bindu Muñiz, 3:07:02 PM RN Intra-Procedure 09/02/2020 Darren Banks 3:07:17 PM Silvestre RAMÍREZ Signatures Performing Physician : Signature : Darren Saravia MD Date : Time : Monitor : Albertina Roberson Signature : RT Date : Time : Nurse : Bindu Muñiz, Signature : RN Date : Time : [address] [address]
--- NOTE | ~2020-09-02 | OP ---
PATIENT NAME: MARLEEN DIAZ MEDICAL RECORD: [id number] :42 LOCATION:D.CAT ADMISSION DATE: SURGEON: ROSA PHIPPS MD DATE OF OPERATION: 09/02/2020 DESCRIPTION OF PROCEDURE: After the previously placed pacemaker pocket was opened via Dr. Jordan under fluoroscopic-guidance using straight and curved wire, I was able to reposition the right atrial lead in the right atrial appendage. This was confirmed in the URENA view with anterior location. We measured fibrillatory waves due to the patient's underlying atrial fibrillation at this point in time, could consider cardioversion at a later date taking advantage of the atrial kick. ESTIMATED BLOOD LOSS: Minimal. COMPLICATIONS: None. DISPOSITION: To the floor, stable. TRANSINT:[id number] Voice Confirmation ID: [id number] DOCUMENT ID: [id number] 09/04/[address] Yun/office, [facility]. ROSA PHIPPS MD CC: [id number] DICTATION DATE: 09/02/20 1508 DENSITOMETER READER: 09/03/20 0024 [facility] 09/02/20 [place] [id number]
[2020-09-02 11:16] VITALS: BP 137/80; Ht 157.5 cm; Wt 89.2 kg
[2020-09-02 11:36] LABS: ANION GAP 11.2 mmol/L (8-16); CALCIUM 9.1 mg/dL (8.5-10.1); CARBON DIOXIDE 25.6 mmol/L (21.0-32.0); CREATININE - SERUM 1.1 mg/dL (0.6-1.3); POTASSIUM - SERUM 3.8 mmol/L (3.5-5.1)
[2020-09-02 11:38] LABS: APTT 27.8 SECONDS (22.8-39.4); INR 1.06 (0.85-1.17); PROTIME 13.8 SECONDS (11.6-15.0)
[2020-09-02 11:39] LABS: HEMATOCRIT 43.4 % (36.0-48.0); HEMOGLOBIN 14.5 g/dL (12-16); MCH 30.9 pg (26.0-34.0); MCHC 33.4 g/dL (31.0-37.0); MCV 92.3 fL (80.0-100.0); MEAN PLATELET VOLUME 10.4 fL (7.4-10.4); RBC 4.7 10x6/uL (4.00-5.40); RDW 13.5 % (11.5-14.5); WBC 9.7 10x3/uL (4.8-10.8)
--- NOTE | 2020-09-02 15:15 | NUR ---
PT REC'D TO ROOM 8 VIA STRETCHER FROM FLOATER OPERATOR. MONITORS ESTAB. PCXR DONE. AT BS. SEE BURGLAR ALARM OPERATOR. ALARMS ON AND C/L IN REACH.
--- NOTE | 2020-09-02 15:30 | NUR ---
VSS, CM - A FIB, OCC PACED BEAT NOTED. L CHEST DSG C/D/I. PT DENIES PAIN. GIVEN SANDWICH AND SPRITE PER REQUEST. ALARMS ON AND C/L IN REACH.
--- NOTE | 2020-09-02 16:00 | NUR ---
VSS. CM-CAF. L CHEST DSG C/D/I. L ARM REMAINS IN SLING. PT DENIES PAIN OR NEEDS.
--- NOTE | 2020-09-02 16:25 | NUR ---
L CHEST DSG C/D/I, NO DRAINGE OR SWELLING NOTED. CM - CAF. PIV D/C'D INTACT, DSG APPLIED. PT ASSISTED UP AND WITH DRESSING. L ARM IN SLING.
--- NOTE | 2020-09-02 16:35 | NUR ---
ALL DISCHARGE INSTRUCTIONS REVIEWED WITH PT AND , INCLUDING RESTRICTIONS, MEDS AND F/U APPT. BOTH VERBALIZE UNDERSTANDING..
--- NOTE | 2020-09-02 16:40 | NUR ---
PT D/C'D TO PRIVATE VEHICLE WITH ALL PAPERWORK AND BELONGINGS.
--- NOTE | 2020-09-04 13:46 | OP ---
PATIENT NAME: MARLEEN DIAZ MEDICAL RECORD: [id number] :42 LOCATION:D.CAT ADMISSION DATE: SURGEON: KHUSHI PICKERING MD DATE OF OPERATION: 09/02/2020 PREOPERATIVE DIAGNOSES: 1. Dislodged atrial lead. 2. Sick sinus syndrome. POSTOPERATIVE DIAGNOSES: 1. Dislodged atrial lead. 2. Sick sinus syndrome. PROCEDURE: Revision of atrial lead from dual lead pacemaker. SURGEON: Khushi Pickering MD CO-SURGEON: Darren Yun MD REPORT OF OPERATION: The patient's left upper chest was prepped and draped in sterile fashion. A 15 mL of 1% lidocaine with epinephrine was infused into the subcutaneous tissues. A transverse incision was made overlying the indwelling pacemaker. Electrocautery was used to dissect through the subcutaneous tissues and we eviscerated the pacemaker. The atrial lead was disconnected from the pacemaker generator and at this point, Dr. Yun manipulated the lead and was able to get it positioned appropriately in the patient's right atrium. Once it was noted to be functioning appropriately, then it was reapplied to the pacemaker generator, which was placed into the subcutaneous pouch. The subcutaneous tissues were irrigated out with antibiotic solution and then reapproximated with interrupted 3-0 Vicryls. The skin was closed with running subcutaneous 5-0 Monocryl and dressed appropriately. COMPLICATIONS: None. CONDITION: Stable. ANESTHESIA: Local MAC. BLOOD LOSS: Minimal. TRANSINT:[id number] Voice Confirmation ID: [id number] DOCUMENT ID: [id number] KHUSHI PICKERING MD at 1346 CC: [id number] DICTATION DATE: 09/02/20 1746 LEAD ESTHETICIAN: 09/03/20 0150 [facility] 09/02/20 [place] [id number]
== END 2020-09-02 16:40 | disposition home or self-care (01) ==
LOC: D.CATH 10:44
PROVIDERS: ATTEND Internal Medicine Interventional Cardiology
DX: T82.128A Displacement of other cardiac electronic device, initial encounter (principal); I25.119 Atherosclerotic heart disease of native coronary artery with unspecified angina pectoris; I48.91 Unspecified atrial fibrillation; I48.0 Paroxysmal atrial fibrillation; I42.9 Cardiomyopathy, unspecified; Z95.0 Presence of cardiac pacemaker; I10 Essential (primary) hypertension; I49.5 Sick sinus syndrome